=== PATIENT | male | born 2000 | race Hispanic/Latino ===

== ENCOUNTER 2018-04-15 23:10 | Emergency (ER) | payer SELFPAY ==
[2018-04-15] MEDS ORDERED: HYDROCODONE/CHLORPHEN 5 ML/OSYR ONE (23:54)
[2018-04-15] MEDS ORDERED: DEXAMETHASONE 10 MG/ML VIAL ONE (23:54)
[2018-04-15] MEDS ORDERED: IBUPROFEN 400 MG TAB ONE (23:55)
[2018-04-16] MEDS ORDERED: AZITHROMYCIN 250 MG TAB ONE (00:23)
--- NOTE | 2018-04-16 00:59 | EDPHYS ---
Physician Documentation [facility] Name: Gal Chang Age: 18 yrs Sex: Male : 2000 Arrival Date: 04/15/2018 Time: 23:15 Bed 20 Private MD: ED Physician Jericho Estrada HPI: 04/16 00:57 This 18 yrs old Male presents to ER via Ambulatory with complaints of Sore snw Throat, Ear Pain, Headache, Neck Pain, <24hrs Old. 00:57 The patient presents with sore throat. The patient describes throat pain as raw. Onset: snw The symptoms/episode began/occurred suddenly, 2 day(s) ago, and became worse and became persistent. Severity of symptoms: At their worst the symptoms were moderate, severe. Modifying factors: The symptoms are alleviated by nothing, the symptoms are aggravated by swallowing, The patient has had contact with sick daughter, mother. Associated signs and symptoms: Pertinent positives: earache, flu-like symptoms, nausea, Sore throat. The patient has not experienced similar symptoms in the past. The patient has not recently seen a physician. Historical: - Allergies: 04/15 23:29 No Known Allergies; bb - Home Meds: 23:29 None [Active]; bb - PMHx: 23:29 None; bb - PSHx: 23:29 None; bb - Immunization history:: Adult Immunizations up to date. - Social history:: Smoking status: Patient uses tobacco products, smokes one-half pack cigarettes per day, Patient/guardian denies using alcohol, street drugs. - Ebola Screening: : No symptoms or risks identified at this time. ROS: 04/16 00:55 Eyes: Negative for injury, pain, redness, and discharge, Neck: Negative for injury, snw pain, and swelling, Cardiovascular: Negative for chest pain, palpitations, and edema, Abdomen/GI: Negative for abdominal pain, nausea, vomiting, diarrhea, and constipation, Back: Negative for injury and pain, : Negative for injury, bleeding, discharge, and swelling, MS/Extremity: Negative for injury and deformity, Skin: Negative for injury, rash, and discoloration. Constitutional: Positive for body aches, chills, fever, malaise, poor PO intake. ENT: Positive for ear pain, sore throat. Respiratory: Positive for cough. Neuro: Positive for headache. Exam: 00:55 Head/Face: Normocephalic, atraumatic. Eyes: Pupils equal round and reactive to light, snw extra-ocular motions intact. Lids and lashes normal. Conjunctiva and sclera are non-icteric and not injected. Cornea within normal limits. Periorbital areas with no swelling, redness, or edema. 00:55 Chest/axilla: Normal chest wall appearance and motion. Nontender with no deformity. No lesions are appreciated. 00:55 Abdomen/GI: Soft, non-tender, with normal bowel sounds. No distension or tympany. No guarding or rebound. No evidence of tenderness throughout. Back: No spinal tenderness. No costovertebral tenderness. Full range of motion. Skin: Warm, dry with normal turgor. Normal color with no rashes, no lesions, and no evidence of cellulitis. MS/ Extremity: Pulses equal, no cyanosis. Neurovascular intact. Full, normal range of motion. Neuro: Awake and alert, GCS 15, oriented to person, place, time, and situation. Cranial nerves II-XII grossly intact. Motor strength 5/5 in all extremities. Sensory grossly intact. Cerebellar exam normal. Normal gait. 00:55 Constitutional: The patient appears alert, awake, febrile. 00:55 ENT: External ear(s): are unremarkable, Ear canal(s): are normal, TM's: are normal, Nose: is normal, Mouth: is normal, Posterior pharynx: erythema, that is moderate, Voice: is normal. 00:55 Cardiovascular: Rate: tachycardic. Vital Signs: 04/15 23:29 BP 132 / 68; Pulse 106; Resp 16 S; Temp 102.6(O); Pulse Ox 97% on R/A; Weight 58.97 kg bb (R); Height 5 ft. 6 in. (167.64 cm) (R); Pain /; 04/16 00:11 BP 122 / 72; Pulse 95; Resp 18; Pulse Ox 98% on R/A; rv 00:33 BP 121 / 67; Pulse 95; Resp 16; Temp 100.4; Pulse Ox 96% ; rv 01:03 BP 119 / 63; Pulse 92; Resp 17; Pulse Ox 97% on R/A; rv 01:31 BP 112 / 62; Pulse 86; Resp 18; Pulse Ox 97% ; rv 04/15 23:29 Body Mass Index 20.98 (58.97 kg, 167.64 cm) bb MDM: 04/15 23: Patient medically screened. snw 04/16 01:06 Data reviewed: vital signs, nurses notes. Data interpreted: Pulse oximetry: on room air snw is 97 %. Interpretation: normal. Counseling: I had a detailed discussion with the patient and/or guardian regarding: the historical points, exam findings, and any diagnostic results supporting the discharge/admit diagnosis, lab results, the need for outpatient follow up, to return to the emergency department if symptoms worsen or persist or if there are any questions or concerns that arise at home. Special discussion: Based on the history and exam findings, there is no indication for further emergent testing or inpatient evaluation. I discussed with the patient/guardian the need to see the primary care provider for further evaluation of the symptoms. 04/15 23:27 Order name: Strep; Complete Time: 00:13 snw 04/16 00:09 Order name: Throat Culture EDMS Administered Medications: 04/15 23:45 Drug: Tussionex Pennkinetic ER 5 ml Route: PO; rv 04/16 00:24 Follow up: Response: No adverse reaction rv 04/15 23:45 Drug: Motrin 400 mg Route: PO; rv 04/16 00:24 Follow up: Response: No adverse reaction rv 04/15 23:45 Drug: Decadron 10 mg Route: IM; Site: right deltoid; rv 04/16 00:24 Follow up: Response: No adverse reaction rv 00:22 Drug: Zithromax 500 mg Route: PO; rv 01:04 Follow up: Response: No adverse reaction; Medication administered at discharge. rv Disposition: 06:47 Co-signature as Attending Physician, Jericho Estrada MD. rn Disposition: 04/16/18 00:59 Discharged to Home. Impression: Bronchitis, not specified as acute or chronic, Fever presenting with conditions classified elsewhere, Acute pharyngitis. - Condition is Stable. - Discharge Instructions: Acute Bronchitis, Fever, Adult, Pharyngitis. - Prescriptions for Tessalon Perles 100 mg Oral Capsule - take 1 capsule by ORAL route every 8 hours As needed; 15 capsule. Zithromax 500 mg Oral Tablet - take 1 tablet by ORAL route once daily for 5 days; 5 tablet. - Medication Reconciliation Form, Thank You Letter, Antibiotic Education, Prescription Opioid Use, Work release form form. - Follow up: Private Physician; When: 2 - 3 days; Reason: Recheck today's complaints, Continuance of care, Re-evaluation by your physician. Follow up: Emergency Department; When: As needed; Reason: Worsening of condition. Signatures: Dispatcher [employer] EDMS Avelina Desai, FREDDIE-C UNDERWRITING ANALYST-Csnw Tessy Carbajal, DEVIN RN Jericho Holbrook MD MD rn Vicente, Ronaldo, RN RN rv Corrections: (The following items were deleted from the chart) 01:32 00:59 04/16/2018 00:59 Discharged to Home. Impression: Bronchitis, not specified as rv acute or chronic; Fever presenting with conditions classified elsewhere; Acute pharyngitis. Condition is Stable. Forms are Work release form, Medication Reconciliation Form, Thank You Letter, Antibiotic Education, Prescription Opioid Use. Follow up: Private Physician; When: 2 - 3 days; Reason: Recheck today's complaints, Continuance of care, Re-evaluation by your physician. Follow up: Emergency Department; When: As needed; Reason: Worsening of condition. snw
--- NOTE | 2018-04-16 00:59 | ER ---
Nurse's Notes [facility] Name: Gal Chang Age: 18 yrs Sex: Male : 2000 Arrival Date: 04/15/2018 Time: 23:15 Bed 20 Private MD: Diagnosis: Bronchitis, not specified as acute or chronic;Fever presenting with conditions classified elsewhere;Acute pharyngitis Presentation: 04/15 23:24 Presenting complaint: Patient states: he has a sore throat, right ear pain, headache, bb and a possible bite on his left shoulder blade, in general feeling ill pt tried some OTC medications but it is not helping. Transition of care: patient was not received from another setting of care. Onset of symptoms was April 08, 2018. Risk Assessment: Do you want to hurt yourself or someone else? Patient reports no desire to harm self or others. Initial Sepsis Screen: Does the patient meet any 2 criteria? No. Patient's initial sepsis screen is negative. Does the patient have a suspected source of infection? No. Patient's initial sepsis screen is negative. Care prior to arrival: None. 23:24 Method Of Arrival: Ambulatory bb 23:24 Acuity: FLORENTINO 4 bb Historical: - Allergies: 23:29 No Known Allergies; bb - Home Meds: 23:29 None [Active]; bb - PMHx: 23:29 None; bb - PSHx: 23:29 None; bb - Immunization history:: Adult Immunizations up to date. - Social history:: Smoking status: Patient uses tobacco products, smokes one-half pack cigarettes per day, Patient/guardian denies using alcohol, street drugs. - Ebola Screening: : No symptoms or risks identified at this time. Screenin:39 Abuse screen: Denies threats or abuse. Denies injuries from another. Nutritional rv screening: No deficits noted. Tuberculosis screening: No symptoms or risk factors identified. Fall Risk None identified. Assessment: 23:37 General: Appears in no apparent distress. uncomfortable, Behavior is calm, cooperative, rv appropriate for age. Pain: Complains of pain in submental area, thyroid cartilage, right aspect of thyroid, left aspect of thyroid, right submandibular area, left submandibular area, right sternocleidomastoid and left sternocleidomastoid. Neuro: Level of Consciousness is awake, alert, obeys commands, Oriented to person, place, time, situation. Cardiovascular: Heart tones S1 S2 present. Respiratory: Airway is patent Respiratory effort is unlabored, Breath sounds are clear. Respiratory: Breath sounds are clear bilaterally. GI: No signs and/or symptoms were reported involving the gastrointestinal system. GI: No signs and/or symptoms were reported involving the gastrointestinal system. : No signs and/or symptoms were reported regarding the genitourinary system. EENT: Throat is reddened. Derm: Skin is intact. Musculoskeletal: No signs and/or symptoms reported regarding the musculoskeletal system. 04/16 00:11 Reassessment: Patient appears in no apparent distress at this time. Patient and/or rv family updated on plan of care and expected duration. Pain level reassessed. Patient is alert, oriented x 3, equal unlabored respirations, skin warm/dry/pink. patient lying comfortably on bed. Vital Signs: 04/15 23:29 BP 132 / 68; Pulse 106; Resp 16 S; Temp 102.6(O); Pulse Ox 97% on R/A; Weight 58.97 kg bb (R); Height 5 ft. 6 in. (167.64 cm) (R); Pain 8/10; 04/16 00:11 BP 122 / 72; Pulse 95; Resp 18; Pulse Ox 98% on R/A; rv 00:33 BP 121 / 67; Pulse 95; Resp 16; Temp 100.4; Pulse Ox 96% ; rv 01:03 BP 119 / 63; Pulse 92; Resp 17; Pulse Ox 97% on R/A; rv 01:31 BP 112 / 62; Pulse 86; Resp 18; Pulse Ox 97% ; rv 04/15 23:29 Body Mass Index 20.98 (58.97 kg, 167.64 cm) ED Course: 04/15 23:15 Patient arrived in ED. es 23:17 [facility]C [facility] snw 23:17 Jericho Estrada MD is Attending Physician. snw 23:27 Triage completed. bb 23:29 Arm band placed on Patient placed in an exam room, on a stretcher, on pulse oximetry. bb Family accompanied patient. 23:37 Strep Sent. rv 23:39 Patient has correct armband on for positive identification. Bed in low position. Call rv light in reach. Side rails up X 1. Adult w/ patient. Pulse ox on. NIBP on. 04/16 01:02 No provider procedures requiring assistance completed. Patient did not have IV access rv during this emergency room visit. Administered Medications: 04/15 23:45 Drug: Tussionex Pennkinetic ER 5 ml Route: PO; rv 04/16 00:24 Follow up: Response: No adverse reaction rv 04/15 23:45 Drug: Motrin 400 mg Route: PO; rv 04/16 00:24 Follow up: Response: No adverse reaction rv 04/15 23:45 Drug: Decadron 10 mg Route: IM; Site: right deltoid; rv 04/16 00:24 Follow up: Response: No adverse reaction rv 00:22 Drug: Zithromax 500 mg Route: PO; rv 01:04 Follow up: Response: No adverse reaction; Medication administered at discharge. rv Outcome: 00:59 Discharge ordered by MD. mcguire 01:03 Discharged to home ambulatory. rv 01:03 Condition: good 01:03 Discharge instructions given to patient, Instructed on discharge instructions, medication usage. 01:32 Patient left the ED. rv Signatures: Avelina Desai, SUPERVISOR SULFURIC ACID PLANT-C SUPERVISOR SULFURIC ACID PLANT-Csnw Rakel Ruiz Brenda, RN RN Kulwant Siddiqi RN RN rv
== END 2018-04-16 01:32 | disposition home or self-care (01) ==
LOC: ER 23:10
DX: J40 Bronchitis, not specified as acute or chronic (principal); F17.210 Nicotine dependence, cigarettes, uncomplicated
CPT/HCPCS: 87070; 87081; 96372; 99284; J1100

== ENCOUNTER 2019-10-21 20:34 | Emergency (ER) | payer SELFPAY ==
[2019-10-21] MEDS ORDERED: HYDROCODONE/APAP 7.5/325 MG TAB ONE (21:27)
[2019-10-21] MEDS ORDERED: ONDANSETRON 4 MG (ODT) TAB ONE (21:28)
--- NOTE | 2019-10-21 21:48 | ER ---
Nurse's Notes [facility] Name: Gal Chang Age: 19 yrs Sex: Male : 2000 Arrival Date: 10/21/2019 Time: 20:38 Bed 26 Private MD: Diagnosis: Avulsion fracture of unspecified right metacarpal Presentation: 10/21 20:42 Presenting complaint: Patient states: Last night he punched a brick wall with both aj1 hands. Reports pain to both hands. Abrasions noted to knuckles on both hands. Swelling noted to right hand. Patient states he would like to get both hands X-Rayed to make sure it isn't broken. Transition of care: patient was not received from another setting of care. Onset of symptoms was October 21, 2019. Risk Assessment: Do you want to hurt yourself or someone else? Patient reports no desire to harm self or others. Initial Sepsis Screen: Does the patient meet any 2 criteria? No. Patient's initial sepsis screen is negative. Does the patient have a suspected source of infection? No. Patient's initial sepsis screen is negative. Care prior to arrival: None. 20:42 Method Of Arrival: Ambulatory aj1 20:42 Acuity: FLORENTINO 4 aj1 Triage Assessment: 20:44 General: Appears in no apparent distress. comfortable, Behavior is calm, cooperative, aj1 appropriate for age. Pain: Complains of pain in right hand and left hand Pain currently is 10 out of 10 on a pain scale. Neuro: Level of Consciousness is awake, alert, obeys commands. Cardiovascular: Patient's skin is warm and dry. Respiratory: Airway is patent Respiratory effort is even, unlabored, Respiratory pattern is regular, symmetrical. Musculoskeletal: Range of motion: limited in MCP of left little finger, MCP of left ring finger, MCP of left middle finger, MCP of left index finger, MCP of right index finger, MCP of right middle finger, MCP of right ring finger and MCP of right little finger. Injury Description: Patient states that he punched a wall yesterday. Historical: - Allergies: 20:44 No Known Allergies; aj1 - Home Meds: 20:44 None [Active]; aj1 - PMHx: 20:44 None; aj1 - PSHx: 20:44 None; aj1 - Immunization history:: Flu vaccine is not up to date. - Social history:: Smoking status: Patient uses tobacco products, smokes one-half pack cigarettes per day. - Ebola Screening: : Patient denies travel to an Ebola-affected area in the 21 days before illness onset. Screenin:01 Abuse screen: Denies threats or abuse. Denies injuries from another. Nutritional rv screening: No deficits noted. Tuberculosis screening: No symptoms or risk factors identified. Fall Risk None identified. Assessment: 22:00 General: Appears in no apparent distress. Behavior is calm, cooperative. Neuro: Level rv of Consciousness is awake, alert, obeys commands, Oriented to person, place, time, situation. Cardiovascular: Patient's skin is warm and dry. Respiratory: Airway is patent. Derm: Skin is intact. Vital Signs: 20:44 BP 135 / 69; Pulse 109; Resp 20; Temp 98.4; Pulse Ox 99% on R/A; Weight 65.77 kg (R); aj1 Height 5 ft. 6 in. (167.64 cm) (R); Pain 10/10; 22:17 BP 131 / 73; Pulse 96; Resp 16; Pulse Ox 99% on R/A; rv 20:44 Body Mass Index 23.40 (65.77 kg, 167.64 cm) aj1 ED Course: 20:38 Patient arrived in ED. es 20:43 Triage completed. aj1 20:44 Arm band placed on Patient placed in waiting room, Patient notified of wait time. aj1 20:48 Ino Armstrong FNP-C [facility] la1 20:48 Geovani Araujo MD is Attending Physician. la1 21:11 Hand Left 3 View XRAY In Process Unspecified. EDMS 21:11 Hand Right 3 View XRAY In Process Unspecified. EDMS 21:59 Kulwant Wheatley, DEVIN is Primary Nurse. rv 22:01 Patient has correct armband on for positive identification. Pulse ox on. NIBP on. rv 22:01 No provider procedures requiring assistance completed. Patient did not have IV access rv during this emergency room visit. Administered Medications: 21:45 Drug: Taloga (7.5 mg-325 mg) 1 tabs {Note: rass 0.} Route: PO; rv 22:16 Follow up: Response: No adverse reaction; Marked relief of symptoms; Pain is decreased; rv RASS: Alert and Calm (0) 21:45 Drug: Zofran 4 mg Route: PO; rv 22:16 Follow up: Response: Nausea is decreased rv Outcome: 21:47 Discharge ordered by MD. garcia 22:03 Discharged to home ambulatory. rv 22:03 Condition: good 22:03 Discharge instructions given to patient, Instructed on discharge instructions, follow up and referral plans. Demonstrated understanding of instructions, follow-up care. 22:58 Patient left the ED. rv Signatures: Dispatcher [employer] Mony Duarte, RN RN aj1 Rakel Ruiz Lee, METAL DEALER-C METAL DEALER-Cla1 Kulwant Wheatley RN RN rv
--- NOTE | 2019-10-21 21:48 | EDPHYS ---
Physician Documentation [facility] Name: Gal Chang Age: 19 yrs Sex: Male : 2000 Arrival Date: 10/21/2019 Time: 20:38 Bed 26 Private MD: ED Physician Geovani Araujo HPI: 10/21 21:19 This 19 yrs old Male presents to ER via Ambulatory with complaints of Hand la1 Injury. 21:19 The patient or guardian reports pain, swelling, tenderness. The complaints affect the la1 left hand diffusely, right hand diffusely. Context: The problem was sustained at home, resulted from using own fist to strike, a wall. Onset: The symptoms/episode began/occurred last night. Modifying factors: The symptoms are alleviated by nothing, the symptoms are aggravated by movement. Associated signs and symptoms: The patient has no apparent associated signs or symptoms. Severity of symptoms: At their worst the symptoms were mild, in the emergency department the symptoms are unchanged. The patient has not recently seen a physician. Pt reports that he punched the wall last night with both hands, swelling worse to the right hand. Historical: - Allergies: 20:44 No Known Allergies; aj1 - Home Meds: 20:44 None [Active]; aj1 - PMHx: 20:44 None; aj1 - PSHx: 20:44 None; aj1 - Immunization history:: Flu vaccine is not up to date. - Social history:: Smoking status: Patient uses tobacco products, smokes one-half pack cigarettes per day. - Ebola Screening: : Patient denies travel to an Ebola-affected area in the 21 days before illness onset. ROS: 21:21 Constitutional: Negative for fever, chills, and weight loss, Eyes: Negative for injury, la1 pain, redness, and discharge, ENT: Negative for injury, pain, and discharge, Neck: Negative for injury, pain, and swelling, Cardiovascular: Negative for chest pain, palpitations, and edema, Respiratory: Negative for shortness of breath, cough, wheezing, and pleuritic chest pain, Abdomen/GI: Negative for abdominal pain, nausea, vomiting, diarrhea, and constipation, Back: Negative for injury and pain. 21:21 MS/extremity: Positive for pain, swelling, tenderness, of the left hand. Exam: 21:22 Constitutional: This is a well developed, well nourished patient who is awake, alert, la1 and in no acute distress. Head/Face: Normocephalic, atraumatic. Eyes: Pupils equal round and reactive to light, extra-ocular motions intact. . Periorbital areas with no swelling, redness, or edema. ENT: Mucous membranes moist. Neck: No Meningismus. Chest/axilla: Normal chest wall appearance and motion. Nontender with no deformity. No lesions are appreciated. Cardiovascular: Regular rate and rhythm with a normal S1 and S2. No gallops, murmurs, or rubs. Normal PMI, no JVD. No pulse deficits. Back: No spinal tenderness. No costovertebral tenderness. Full range of motion. Skin: Warm, dry with normal turgor. abrasions to NICOLLE hands/knuckles, swelling to right hand MS/ Extremity: Pulses equal, no cyanosis. Neurovascular intact. Full, normal range of motion. Neuro: Awake and alert, GCS 15, oriented to person, place, time, and situation. Normal gait. Vital Signs: 20:44 BP 135 / 69; Pulse 109; Resp 20; Temp 98.4; Pulse Ox 99% on R/A; Weight 65.77 kg (R); aj1 Height 5 ft. 6 in. (167.64 cm) (R); Pain 10/10; 22:17 BP 131 / 73; Pulse 96; Resp 16; Pulse Ox 99% on R/A; rv 20:44 Body Mass Index 23.40 (65.77 kg, 167.64 cm) aj1 MDM: 21:19 Patient medically screened. la1 21:44 Data reviewed: vital signs, nurses notes, radiologic studies, and as a result, I will la1 discharge patient. Data interpreted: Pulse oximetry: on room air is 99 %. Interpretation: normal. Test interpretation: by ED physician or midlevel provider: plain radiologic studies. Counseling: I had a detailed discussion with the patient and/or guardian regarding: the historical points, exam findings, and any diagnostic results supporting the discharge/admit diagnosis, radiology results, the need for outpatient follow up, a hand specialist, a orthopedic surgeon. ED course: What appears to be a small avulsion fracture present in the lateral view of the right hand, will place in splint and have FU with ortho/hand. 10/21 20:46 Order name: Hand Left 3 View XRAY aj1 10/21 20:46 Order name: Hand Right 3 View XRAY aj1 10/21 21:44 Order name: Ulnar Gutter splint: right hand; Complete Time: 22:16 la1 Administered Medications: 21:45 Drug: Conway (7.5 mg-325 mg) 1 tabs {Note: rass 0.} Route: PO; rv 22:16 Follow up: Response: No adverse reaction; Marked relief of symptoms; Pain is decreased; rv RASS: Alert and Calm (0) 21:45 Drug: Zofran 4 mg Route: PO; rv 22:16 Follow up: Response: Nausea is decreased rv Disposition: 10/22 00:42 Co-signature as Attending Physician, Geovani Araujo MD. pkl Disposition: 10/21/19 21:47 Discharged to Home. Impression: Avulsion fracture of unspecified right metacarpal . - Condition is Stable. - Discharge Instructions: Avulsion Fracture of the Hand, Hand Contusion, Hand Pain. - Work release form, Medication Reconciliation Form, Thank You Letter form. - Follow up: Private Physician; When: 2 - 3 days; Reason: Recheck today's complaints, Re-evaluation by your physician. - Problem is new. - Symptoms are unchanged. Signatures: Dispatcher [employer] Mony Duarte RN RN aj1 Geovani Araujo MD MD pkl Ino Armstrong, JOB SERVICE CONSULTANT-C JOB SERVICE CONSULTANT-Cla1 Kulwant Wheatley RN RN rv Corrections: (The following items were deleted from the chart) 10/21 22:58 21:47 10/21/2019 21:47 Discharged to Home. Impression: Avulsion fracture of unspecified rv right metacarpal . Condition is Stable. Forms are Medication Reconciliation Form, Thank You Letter, Antibiotic Education, Prescription Opioid Use. Follow up: Private Physician; When: 2 - 3 days; Reason: Recheck today's complaints, Re-evaluation by your physician. Problem is new. Symptoms are unchanged. la1
[2019-10-21 23:04] VITALS: TEMP 98.4; O2SAT 99
[2019-10-21 23:05] VITALS: BP 131/73
--- NOTE | 2019-10-22 08:26 | RAD REPORT ---
EXAM DESCRIPTION: RAD - Hand Right 3 View - 10/21/2019 9:20 pm CLINICAL HISTORY: Right hand pain following trauma COMPARISON: None. FINDINGS: Distal aspect of the fifth metacarpal is intact. This is the most common site of fracture for the mechanism of injury described. On the lateral view there is a small 3 millimeter bone density along the dorsal margin of the hand near the base of the metacarpals. This is suspected to arise fro m the base of the fifth metacarpal. No other evidence for fracture. No acute joint finding. Dorsal soft tissues are edematous. No foreign body. IMPRESSION: Suspected small bone avulsion from the dorsal base fifth metacarpal.
--- NOTE | 2019-10-22 08:27 | RAD REPORT ---
EXAM DESCRIPTION: RAD - Hand Left 3 View - 10/21/2019 9:19 pm CLINICAL HISTORY: Left hand pain following trauma COMPARISON: None. FINDINGS: No fracture, dislocation or periosteal reaction noted. No foreign body seen. Dorsal soft t issues are edematous. IMPRESSION: Soft tissue swelling without fracture identified.
== END 2019-10-21 22:58 | disposition home or self-care (01) ==
LOC: ER 20:34
PROC: 2W3CX1Z Immobilization of Right Lower Arm using Splint (ICD-10-PCS; principal; 2019-10-21)
DX: S62.309A Unspecified fracture of unspecified metacarpal bone, initial encounter for closed fracture (principal); W22.8XXA Striking against or struck by other objects, initial encounter; Y93.89 Activity, other specified; Y92.009 Unspecified place in unspecified non-institutional (private) residence as the place of occurrence of the external cause; F17.210 Nicotine dependence, cigarettes, uncomplicated
CPT/HCPCS: 99283

== ENCOUNTER 2021-09-01 15:09 | Observation (INO) | payer SELFPAY ==
[2021-09-01] MEDS ORDERED: NA CHLORIDE 0.9% 1,000 ML ONE ×2 (15:24→16:46)
[2021-09-01 15:45] LABS: Absolute Lymphocytes (CBC) 1.6 K/uL (0.7-4.9); Basophils % 0.2 % (0-1.3); Hematocrit 40.8 % (39.6-49.0); Lymphocytes % 10.6 % (15.3-44.8); MPV 7.9 fL (7.6-11.3); RBC Red Blood Cell Count 4.66 M/uL (4.33-5.43)
[2021-09-01 16:01] LABS: ALT/SGPT 51 U/L (12-78); AST/SGOT 27 U/L (15-37); Albumin 4.4 g/dL (3.4-5.0); Alkaline Phosphatase 112 U/L (45-117); BUN Blood Urea Nitrogen 22 mg/dL (7-18); Bicarbonate 25 mmol/L (21-32); Bilirubin Direct 0.1 mg/dL (0-0.2); Bilirubin Total 0.5 mg/dL (0.2-1.0); Glucose Level 100 mg/dL (74-106); Lipase 69 U/L (73-393); Potassium 3.8 mmol/L (3.5-5.1); Protein, Total 7.8 g/dL (6.4-8.2); Sodium Level 141 mmol/L (136-145)
[2021-09-01 16:28] LABS: Blood Morphology Comment NOT SEEN (NOT SEEN); Platelet Estimate ADEQ; White Blood Cell Scan OK (OK)
--- NOTE | 2021-09-01 16:29 | RAD REPORT ---
EXAM DESCRIPTION: CTAbdomen Pelvis W Contrast - 09/01/2021 4:22 pm CLINICAL HISTORY: ABD PAIN COMPARISON: No comparisons TECHNIQUE: CT of the abdomen and pelvis was performed. All CT scans are performed using dose optimization technique as appropriate and may include automated exposure control or mA/KV adjustment according to patient size. FINDINGS: Lower chest: No acute abnormality. Liver: No acute abnormality or suspicious lesions. Biliary: No biliary ductal dilatation. Stomach: No significant focal abnormality. Duodenum: No significant focal abnormality. Pancreas: No significant abnormality. Spleen: No significant abnormality. Adrenal: No suspicious lesions. Kidney/ureter: No hydronephrosis. No renal calculi. Retroperitoneum: No retroperitoneal adenopathy. Vascular: No aneurysm. Bowel: Dilated appendix with appendicolith. No bowel obstruction. Peritoneum: No ascites or free air. Bladder: Grossly unremarkable. Reproductive: No adnexal masses. Bones: No acute fracture. Other: n/a IMPRESSION: Findings concerning for mild or early acute nonperforated appendicitis.
--- NOTE | 2021-09-01 16:40 | EDPHYS ---
Physician Documentation [facility] Name: Gla Chang Age: 21 yrs Sex: Male : 2000 Arrival Date: 09/01/2021 Time: 15:13 Bed 17 Private MD: ED Physician Melvin Joyner HPI: 09/01 15:25 This 21 yrs old Male presents to ER via EMS with complaints of abdominal pain. kb 15:25 The patient presents with abdominal pain that is diffuse. Onset: The symptoms/episode kb began/occurred today, at 12:00. The symptoms do not radiate. Associated signs and symptoms: Pertinent positives: nausea, Pertinent negatives: diarrhea, fever, vomiting. The symptoms are described as constant. Modifying factors: The symptoms are alleviated by nothing, the symptoms are aggravated by pressure. Severity of pain: At its worst the pain was moderate in the emergency department the pain is unchanged. The patient has not experienced similar symptoms in the past. The patient has not recently seen a physician. Pt reports sudden onset of abd pain that started at 1200 and has been getting worse. Historical: - Allergies: 15:19 No Known Allergies; vg1 - Home Meds: 15:19 None [Active]; vg1 - PMHx: 15:19 None; vg1 - PSHx: 15:19 None; vg1 - Immunization history:: Client reports receiving the 2nd dose of the Covid vaccine. - Social history:: Smoking status: Reported history of juuling and/or vaping. ROS: 15:25 Constitutional: Negative for fever, chills, and weight loss. kb 15:25 Abdomen/GI: Positive for abdominal pain, nausea, Negative for vomiting, diarrhea, constipation. 15:25 All other systems are negative. Exam: 15:25 Constitutional: This is a well developed, well nourished patient who is awake, alert, kb and in no acute distress. Head/Face: Normocephalic, atraumatic. ENT: Moist Mucous membranes Cardiovascular: Regular rate and rhythm with a normal S1 and S2. No gallops, murmurs, or rubs. No pulse deficits. Respiratory: Respirations even and unlabored. No increased work of breathing, no retractions or nasal flaring. Skin: Warm, dry with normal turgor. Normal color. MS/ Extremity: Pulses equal, no cyanosis. Neurovascular intact. Full, normal range of motion. Neuro: Awake and alert, GCS 15, oriented to person, place, time, and situation. Moves all extremities. Normal gait. Psych: Awake, alert, with orientation to person, place and time. Behavior, mood, and affect are within normal limits. 15:25 Abdomen/GI: Inspection: abdomen appears normal, Bowel sounds: normal, in all quadrants, Palpation: soft, in all quadrants, mild abdominal tenderness, in the right upper quadrant, left upper quadrant and left lower quadrant, moderate abdominal tenderness, in the right lower quadrant. Vital Signs: 15:15 BP 123 / 85; Pulse 66; Resp 14; Temp 97.9(O); Pulse Ox 96% ; Weight 68.04 kg; Height 5 vg1 ft. 6 in. (167.64 cm); Pain 8/10; 16:00 BP 147 / 99; Pulse 87; Resp 15; Pulse Ox 98% ; vg1 16:45 BP 132 / 78; Pulse 80; Resp 16; Pulse Ox 100% ; vg1 15:15 Body Mass Index 24.21 (68.04 kg, 167.64 cm) vg1 MDM: 15:13 Patient medically screened. kb 15:25 Data reviewed: vital signs, nurses notes. Data interpreted: Pulse oximetry: on room air kb is 96 %. Interpretation: normal. 16:39 Counseling: I had a detailed discussion with the patient and/or guardian regarding: the kb historical points, exam findings, and any diagnostic results supporting the discharge/admit diagnosis, lab results, radiology results, the need for further work-up and treatment in the hospital. 16:39 Physician consultation: Nathan Zhao MD was contacted at 16:39, regarding admission, kb to the medical/surgical unit. patient's condition, and will see patient shortly. 09/01 15:14 Order name: Basic Metabolic Panel; Complete Time: 16:05 kb 09/01 15:14 Order name: CBC with Diff; Complete Time: 16:37 kb 09/01 15:14 Order name: Hepatic Function; Complete Time: 16:05 kb 09/01 15:14 Order name: Lipase; Complete Time: 16:05 kb 09/01 16:28 Order name: CBC Smear Scan; Complete Time: 16:37 EDMS 09/01 16:43 Order name: COVID-19 SARS RT PCR (Document "Date of Onset" if Symptomatic) 09/01 15:14 Order name: IV Saline Lock; Complete Time: 15:23 kb 09/01 15:14 Order name: Labs collected and sent; Complete Time: 15:40 kb 09/01 15:14 Order name: CT Abd/Pelvis - IV Contrast Only; Complete Time: 16:37 kb Administered Medications: 15:40 Drug: NS 0.9% 1000 ml Route: IV; Rate: 1000 ml; Site: left antecubital; vg1 17:16 Follow up: IV Status: Completed infusion; IV Intake: 1000ml vg1 17:07 Drug: NS 0.9% 1000 ml Route: IV; Rate: 125 ml/hr; Site: left antecubital; jt3 17:16 Follow up: IV Status: Infusion continued upon admission vg1 17:07 Drug: Rocephin (cefTRIAXone) 1 grams Route: IV; Rate: calculated rate; Site: left jt3 antecubital; 17:16 Follow up: IV Status: Completed infusion vg1 17:07 Drug: Flagyl (metroNIDAZOLE) 500 mg Volume: 100 ml; Route: IVPB; Rate: 200 ml/hr; jt3 Infused Over: 30 mins; Site: left antecubital; 17:16 Follow up: IV Status: Infusion continued upon admission vg1 Disposition Summary: 09/01/21 16:40 Hospitalization Ordered Hospitalization Status: Observation kb Provider: Nathan Zhao Location: Telemetry/MedSurg (observation) kb Condition: Stable kb Problem: new kb Symptoms: are unchanged kb Bed/Room Type: Standard Room Assignment: Diagnosis - Unspecified acute appendicitis kb Forms: - Medication Reconciliation Form kb - SBAR form kb Addendum: 09/03/2021 03:48 Co-signature as Attending Physician, Melvin Joyner MD I agree with the assessment and k dr plan of care. Signatures: Dispatcher [employer] Annette Daly, BEDSPREAD SEAMER-C BEDSPREAD SEAMER-Melvin Tierney MD MD kdr Garcia, Victoria RN RN vg1 Van Cummings RN RN jt3
--- NOTE | 2021-09-01 16:40 | ER ---
Nurse's Notes [facility] Name: Gal Chang Age: 21 yrs Sex: Male : 2000 Arrival Date: 09/01/2021 Time: 15:13 Bed 17 Private MD: Diagnosis: Unspecified acute appendicitis Presentation: 09/01 15:15 Chief complaint: Patient states: pt states pain is now 8/10 after receiving fentanyl; vg1 pain was 10/10 EMS states: Sudden onset of ABD pain today around noon. Pt stated NVD. Pt was given 4 mg of Zofran IVP and 50 of Fentanyl IVP. Coronavirus screen: Vaccine status: Patient reports receiving the 2nd dose of the covid vaccine. Client denies travel out of the [place] in the last 14 days. Client presents with at least one sign or symptom that may indicate coronavirus-19. Standard/surgical mask placed on the client. Ebola Screen: Patient negative for fever greater than or equal to 101.5 degrees Fahrenheit, and additional compatible Ebola Virus Disease symptoms. Initial Sepsis Screen: Does the patient meet any 2 criteria? No. Patient's initial sepsis screen is negative. Does the patient have a suspected source of infection? No. Patient's initial sepsis screen is negative. Risk Assessment: Do you want to hurt yourself or someone else? Patient reports no desire to harm self or others. Onset of symptoms was September 01, 2021. 15:15 Method Of Arrival: EMS: [facility] vg1 15:15 Acuity: FLORENTINO 3 vg1 Triage Assessment: 15:19 General: Appears in no apparent distress. uncomfortable, Behavior is cooperative. Pain: vg1 Complains of pain in abdomen Pain currently is 8 out of 10 on a pain scale. Pain began 3 hours ago. Noted to be crying, grimacing, moaning, Also complains of nausea. EENT: No signs and/or symptoms were reported regarding the EENT system. Neuro: Level of Consciousness is awake, alert, obeys commands, Oriented to person, place, time, situation. Cardiovascular: Patient's skin is warm and dry. Respiratory: Airway is patent Respiratory effort is even, unlabored. GI: Abdomen is flat, Abdomen is tender to palpation X 4 quads. Guarding noted Reports diarrhea, nausea, vomiting. : No signs and/or symptoms were reported regarding the genitourinary system. Derm: Skin is intact, Skin is pink, warm \T\ dry. Musculoskeletal: Circulation, motion, and sensation intact. Historical: - Allergies: 15:19 No Known Allergies; vg1 - Home Meds: 15:19 None [Active]; vg1 - PMHx: 15:19 None; vg1 - PSHx: 15:19 None; vg1 - Immunization history:: Client reports receiving the 2nd dose of the Covid vaccine. - Social history:: Smoking status: Reported history of juuling and/or vaping. Screenin:22 Abuse screen: Denies threats or abuse. Nutritional screening: No deficits noted. vg1 Tuberculosis screening: No symptoms or risk factors identified. Fall Risk No fall in past 12 months (0 pts). No secondary diagnosis (0 pts). IV access (20 points). Ambulatory Aid- None/Bed Rest/Nurse Assist (0 pts). Gait- Normal/Bed Rest/Wheelchair (0 pts) Mental Status- Oriented to own ability (0 pts). Total Prasad Fall Scale indicates No Risk (0-24 pts). Assessment: 15:23 Reassessment: SEE TRIAGE. vg1 16:29 Reassessment: Patient appears in no apparent distress at this time. No changes from vg1 previously documented assessment. Patient and/or family updated on plan of care and expected duration. Pain level reassessed. Patient is alert, oriented x 3, equal unlabored respirations, skin warm/dry/pink. 17:18 Reassessment: Patient appears in no apparent distress at this time. No changes from vg1 previously documented assessment. Patient and/or family updated on plan of care and expected duration. Pain level reassessed. Patient is alert, oriented x 3, equal unlabored respirations, skin warm/dry/pink. Pt taken to OR with Edwina BELTRAN. Vital Signs: 15:15 BP 123 / 85; Pulse 66; Resp 14; Temp 97.9(O); Pulse Ox 96% ; Weight 68.04 kg; Height 5 vg1 ft. 6 in. (167.64 cm); Pain 8/10; 16:00 BP 147 / 99; Pulse 87; Resp 15; Pulse Ox 98% ; vg1 16:45 BP 132 / 78; Pulse 80; Resp 16; Pulse Ox 100% ; vg1 15:15 Body Mass Index 24.21 (68.04 kg, 167.64 cm) vg1 ED Course: 15:13 Patient arrived in ED. kb 15:13 Annette Devlin FNP-C is [facility]. kb 15:13 Melvin Joyner MD is Attending Physician. kb 15:15 Modesta Cortes, RN is Primary Nurse. vg1 15:19 Triage completed. vg1 15:22 Patient has correct armband on for positive identification. Bed in low position. Call vg1 light in reach. Side rails up X2. 15:22 Arm band placed on. vg1 15:22 No provider procedures requiring assistance completed. Maintain EMS IV. Dressing vg1 intact. Good blood return noted. Site clean \T\ dry. Gauge \T\ site: 18 R AC. 15:40 Initial lab(s) drawn, by me, sent to lab. Inserted saline lock: 20 gauge in left vg1 antecubital area, using aseptic technique. Blood collected. 16:21 CT Abd/Pelvis - IV Contrast Only In Process Unspecified. EDMS 16:40 Nathan Zhao MD is Hospitalizing Provider. kb 17:20 Patient admitted, IV remains in place. vg1 Administered Medications: 15:40 Drug: NS 0.9% 1000 ml Route: IV; Rate: 1000 ml; Site: left antecubital; vg1 17:16 Follow up: IV Status: Completed infusion; IV Intake: 1000ml vg1 17:07 Drug: NS 0.9% 1000 ml Route: IV; Rate: 125 ml/hr; Site: left antecubital; jt3 17:16 Follow up: IV Status: Infusion continued upon admission vg1 17:07 Drug: Rocephin (cefTRIAXone) 1 grams Route: IV; Rate: calculated rate; Site: left jt3 antecubital; 17:16 Follow up: IV Status: Completed infusion vg1 17:07 Drug: Flagyl (metroNIDAZOLE) 500 mg Volume: 100 ml; Route: IVPB; Rate: 200 ml/hr; jt3 Infused Over: 30 mins; Site: left antecubital; 17:16 Follow up: IV Status: Infusion continued upon admission vg1 Intake: 17:16 IV: 1000ml; Total: 1000ml. vg1 Outcome: 16:40 Decision to Hospitalize by Provider. kb 17:19 Admitted to OR accompanied by nurse, via stretcher, with chart. vg1 17:19 Condition: unchanged 17:19 Instructed on the need for admit. 17:20 Patient left the ED. vg1 Signatures: Dispatcher [employer] Annette Daly, Modesta Mejia RN RN vg1 Van Cummings RN RN jt3 Corrections: (The following items were deleted from the chart) 17:18 16:30 BP 147 / 99; Pulse 87bpm; Resp 15bpm; Pulse Ox 98%; vg1 vg1
[2021-09-01] MEDS ORDERED: CEFTRIAXONE 1000 MG/VIAL ONE (16:45)
[2021-09-01] MEDS ORDERED: WATER FOR INJ,STERILE 10 ML ONE (16:45)
[2021-09-01] MEDS ORDERED: NA CHLORIDE 0.9% 250 ML ONE (16:45)
[2021-09-01] MEDS ORDERED: METRONIDAZOLE 500mg IVPB 500 MG/100 ML BAG IV ONE (16:46)
[2021-09-01] MEDS ORDERED: NA CHLORIDE 0.9% 1,000 ML IV SCH (17:09)
[2021-09-01] MEDS ORDERED: SUCCINYLCHOLINE 20 MG/ML (10 ML) IV ONE (18:11)
[2021-09-01] MEDS ORDERED: MIDAZOLAM HCL 2 MG/2 ML INJ ONE (18:13)
[2021-09-01] MEDS ORDERED: ROCURONIUM 50 MG/5 ML VIAL IV ONE (18:13)
[2021-09-01] MEDS ORDERED: FENTANYL CITR 100 MCG/2 ML ONE ×2 (18:13→19:18)
[2021-09-01] MEDS ORDERED: propofoL 200 MG/20 ML VIAL IV ONE (18:13)
--- NOTE | 2021-09-01 18:16 | P.BOP ---
Preoperative diagnosis: acute appendicitis Postoperative diagnosis: same Primary procedure: Laparoscopic appendectomy Estimated blood loss: <10cc Specimen: albert Findings: as above Anesthesia: General Complications: None Transferred to: Recovery Room Condition: Good
[2021-09-01] MEDS ORDERED: NEOSTIGMINE 1 MG/ML -5 ML ONE (18:40)
[2021-09-01] MEDS ORDERED: GLYCOPYRROLATE 0.2 MG/ML SYR ONE (18:40)
[2021-09-01] MEDS ORDERED: ONDANSETRON 4 MG/2 ML VIAL IV PRN (18:48)
[2021-09-01] MEDS ORDERED: SODIUM CHLORIDE 0.9% 10ML INJ IV PRN (18:48)
[2021-09-01] MEDS ORDERED: KETOROLAC 30 MG/ML INJ ONE (19:16)
[2021-09-01 19:22] VITALS: O2SAT 98
--- NOTE | 2021-09-01 19:57 | OP ---
Date of Procedure: 09/01/2021 Surgeon: Nathan Zhao MD Preoperative Diagnosis: Acute appendicitis. Postoperative Diagnosis: Acute appendicitis. Procedure: Laparoscopic appendectomy. Estimated Blood Loss: Less than 10 cc. Anesthesia: General plus local. Complications: None. Indication: This is a case of a 21-year-old patient who comes to us with above diagnosis. We fully explained the benefits, alternatives, and risks of laparoscopic possible open appendectomy, which inc lude, but not limited to infection, bleeding, damage to adjacent structures, anesthesia complication, RI, even . He also understands this may not relieve symptoms. He might need more than one fatoumata gical intervention. He understood, signed a consent. The OR was called stat. Procedure In Detail: The patient was brought to operating room, placed in supine position. Anesthes ia was done without complication. Abdomen was prepped and draped in a usual sterile fashion. Time-o ut was called. After that we proceeded to make an incision in the infraumbilical region with sharp k nife. The incision was carried down to fascia. We just opened under direct vision. Peritoneum was encountered, opened under direct vision. Vicryl #1 was placed inside the fascia. Lisa trocar was carefully introduced. No bleeding was obtained. I placed 2 more trocars, 5 mm each one of them in s uprapubic and left lower quadrant using same technique, which consisted of local anesthetic, sharp in cision of the skin, introduction of the trocars under direct vision. This allowed me to put a graspe r in the area in the mesoappendix. We noticed to have inflamed appendix, but the base of the appendi x seems to be intact, so we proceeded to carefully create a window in the base of the appendix, trans ected that with Endo-GI 45 and then after that, the vascular stapler for the mesoappendix. No bowel leak. No bleeding. At that moment, I proceeded to remove the appendix after putting that in EndoCa tc under direct visualization. We visualized the area once again. Further hemostasis was obtained with the help of hemoclips. No bowel leak. No bleeding. At that moment, I proceeded to remove the trocars under direct vision. Deflated pneumoperitoneum, closed the fascia with 1 Vicryl. Irrigated subcutaneous tissue, closed that with 3-0 chromic and skin with isidro. Sponge count and instrument counts correct. The patient tolerated the procedure well. The patient is on his way to recovery in stable condition. SUSY/MODL Voice ID: [id number] Report ID: [id number]
--- NOTE | 2021-09-01 20:20 | HP ---
Date of Admission: 09/01/2021 Diagnosis: Acute appendicitis. History Of Present Illness: This is a case of a 21-year-old patient who comes to us with periumbilic al and right lower quadrant tenderness associated with nausea, vomiting, it started about 12 this aft ernoon, getting worse, comes to the ER, was diagnosed with acute appendicitis, and a surgical consult was immediately obtained. He denies any trauma. He denies any dysuria, hematochezia, melena. Loyd es any recent traveling out of the country. Denies any family member sick at home. Review of Systems: See H and P. Ten points otherwise unremarkable. Allergies: NONE. Medications: None. Past Medical History: None. Past Surgical History: None. Social History: He does not smoke. He does not drink alcohol. Physical Examination: General: The patient is awake and alert. HEENT: Pupils are equal and reactive. Anicteric. Neck: Supple. Chest: Clear. Heart: S1, S2. Abdomen: Right lower quadrant tenderness with psoas sign positive, guarding and rebound. Extremitie s: Good capillary refill. Neuro: Cranial nerves 2 through 12 grossly within normal limits. Laboratory Data: WBC count of 15.4 with hemoglobin of 13.7 and platelets of 316. Chloride is 109, p otassium is 3.8, BUN is 22. CAT scan of the abdomen and pelvis interpreted by Dr. Price as findings co ervin for acute appendicitis. Assessment: This is a case of a 21-year-old patient with right lower quadrant tenderness, guarding, rebound, psoas sign positive, Rovsing sign positive, clinically acute appendicitis and radiologically shows acute appendicitis. The patient fully explained the benefits, alternatives, and risks of lapa roscopic possible open appendectomy which include, but not limited to infection, bleeding, damage to adjacent structures, anesthesia complication, negative appendix, DE and even . He also understa nds this may not relieve symptoms. He might need more than one surgical intervention. He understood , signed a consent. The OR was immediately called and booked case in OR. SUSY/DAVI Voice ID: [id number]
[2021-09-01] MEDS: HYDROMORPHONE HCL 1 MG/ML INJ IV PRN (22:54)
[2021-09-01 23:42] VITALS: BMI 24.2
[2021-09-02] MEDS: CEFOXITIN 1 GM in NA CHLORIDE 0.9% 100 ML IVPB SCH ×3 (00:11→11:02)
[2021-09-02] MEDS: HYDROMORPHONE HCL 1 MG/ML INJ IV PRN (01:57)
[2021-09-02 05:05] LABS: Absolute Lymphocytes (CBC) 2.9 K/uL (0.7-4.9); Basophils % 0.3 % (0-1.3); Hematocrit 38.6 % (39.6-49.0); Lymphocytes % 24.2 % (15.3-44.8); MPV 8.4 fL (7.6-11.3)
[2021-09-02 05:17] LABS: BUN Blood Urea Nitrogen 17 mg/dL (7-18); Bicarbonate 24 mmol/L (21-32); Glucose Level 141 mg/dL (74-106); Potassium 3.6 mmol/L (3.5-5.1); Sodium Level 140 mmol/L (136-145)
[2021-09-02] MEDS: HYDROCODONE/APAP 5/325 MG TAB PO PRN ×2 (05:39→11:03)
[2021-09-02 08:11] VITALS: TEMP 97.3
[2021-09-02] MEDS ORDERED: PANTOPRAZOLE 40 MG INJ IVP SCH (09:00)
--- NOTE | 2021-09-02 11:34 | P.DS ---
Admission Date: 09/01/21 Discharge Date: 09/02/21 Disposition: ROUTINE DISCHARGE Discharge Condition: GOOD Vital Signs/Physical Exam: Temp Pulse Resp BP Pulse Ox 97.3 F 51 20 101/56 L 99 09/02/21 08:00 09/02/21 09:39 09/02/21 08:00 09/02/21 09:39 09/02/21 08:00 General: Alert, In no apparent distress, Oriented x3, Cooperative HEENT: Atraumatic, PERRLA Neck: Supple Respiratory: Normal air movement Cardiovascular: No edema, Normal pulses Gastrointestinal: Soft and benign Musculoskeletal: No erythema, No tenderness, No warmth Integumentary: No rashes, No breakdown Neurological: Normal speech Laboratory Data at Discharge: WBC 12.00 K/uL (4.3-10.9) H D 09/02/21 04:33 Hgb 12.8 g/dL (13.6-17.9) L 09/02/21 04:33 Hct 38.6 % (39.6-49.0) L 09/02/21 04:33 Plt Count 269 K/uL (152-406) 09/02/21 04:33 Sodium 140 mmol/L (136-145) 09/02/21 04:33 Potassium 3.6 mmol/L (3.5-5.1) 09/02/21 04:33 BUN 17 mg/dL (7-18) 09/02/21 04:33 Creatinine 0.87 mg/dL (0.55-1.3) 09/02/21 04:33 Glucose 141 mg/dL (74-106) H 09/02/21 04:33 Total Bilirubin 0.5 mg/dL (0.2-1.0) 09/01/21 15:38 AST 27 U/L (15-37) 09/01/21 15:38 ALT 51 U/L (12-78) 09/01/21 15:38 Alkaline Phosphatase 112 U/L (45-117) 09/01/21 15:38 Lipase 69 U/L (73-393) L 09/01/21 15:38 Home Medications: Amox/Clavulanate [Augmentin 875-125 Tab] 1 each PO BID #10 tab 09/02/21 Codeine/APAP [Tylenol W/Codeine #3 tab] 1 tab PO Q4HP PRN #30 tab 09/02/21 New Medications: Amox/Clavulanate [Augmentin 875-125 Tab] 1 each PO BID #10 tab Codeine/APAP [Tylenol W/Codeine #3 tab] 1 tab PO Q4HP PRN #30 tab PRN Reason: Pain Physician Discharge Instructions: Keep area dry for 24h then may remove outer dressing and shower. cover staple with triple abx ointment and band aid Diet: Regular Activity: No lifting more than 10 lbs Followup: NONE,NONE [Primary Care Provider] -
[2021-09-02 12:29] VITALS: BP 118/57
== END 2021-09-02 13:35 | disposition home or self-care (01) ==
LOC: ER 15:09 → ERHOLD 16:55 → 2ND 17:45
PROVIDERS: ADMIT Surgery; ATTEND Surgery
PROC: 0DTJ4ZZ Resection of Appendix, Percutaneous Endoscopic Approach (ICD-10-PCS; principal; 2021-09-01 17:30)
DX: K35.80 Unspecified acute appendicitis (principal); Z20.822 Contact with and (suspected) exposure to COVID-19
CPT/HCPCS: 36415; 74177; 80048; 80076; 83690; 85025; 88304; 94010; 96361; 96374; 96375; 99285; C9113; G0378; J0330; J0694; J1170; J2250; J2704; J2710; J3010; J7030; J7050; Q9967; U0003

== ENCOUNTER 2023-05-05 22:32 | Emergency (ER) | payer SELFPAY ==
[2023-05-05] MEDS ORDERED: MORPHINE 4 MG/ML SYR ONE (23:04)
[2023-05-05] MEDS ORDERED: NA CHLORIDE 0.9% 1,000 ML ONE (23:04)
[2023-05-05] MEDS ORDERED: ONDANSETRON 4 MG/2 ML VIAL ONE (23:04)
[2023-05-05 23:14] LABS: Absolute Lymphocytes (CBC) 1.1 K/uL (0.7-4.9); Hematocrit 42.7 % (39.6-49.0); Lymphocytes % 9.9 % (15.3-44.8); MCV 88.4 fL (80-100); MPV 7.8 fL (7.6-11.3); RBC Red Blood Cell Count 4.83 M/uL (4.33-5.43)
[2023-05-05 23:23] LABS: Albumin 3.9 g/dL (3.4-5.0); Bilirubin Total 0.8 mg/dL (0.2-1.0); Potassium 3.5 mEq/L (3.5-5.1); Protein, Total 7.8 g/dL (6.4-8.2)
[2023-05-06 00:04] LABS: Specific Gravity > 1.030 (1.005-1.030); Urine Bacteria None Seen /HPF (<20); Urine Bilirubin NEGATIVE (Negative); Urine Blood Negative (Negative); Urine Clarity Clear (Clear); Urine Color Yellow (Yellow); Urine Glucose NEGATIVE (Negative); Urine Mucus 3+ /HPF (None Seen); Urine Protein TRACE (Negative); Urine RBC None Seen /HPF (None Seen); Urine Urobilinogen Normal (Normal); Urine pH 5.5 (5.0-7.0)
--- NOTE | 2023-05-06 01:31 | EDPHYS ---
Physician Documentation [facility] Name: Gal Chang Age: 23 yrs Sex: Male : 2000 Arrival Date: 05/05/2023 Time: 22:32 Bed 13 Private MD: ED Physician Marilee Guaman HPI: 05/05 22:48 This 23 yrs old Male presents to ER via Ambulatory with complaints of sp3 Abdominal Pain. 22:48 23-year-old male with no significant past medical history and status post appendectomy sp3 presents to the ED with 2-day history of abdominal cramping, nausea, and several bouts of diarrhea nonbloody nonmucous. Patient states he has possible bad food exposure due to "a restaurant in [place]" that he went to. He denies any sick contacts, significant travel history outside the local area, headache, neck pain, chest pain, shortness of breath, emesis, back pain, rash, fever, URI symptoms, syncope, near syncope, neuro symptoms, or any other signs or symptoms on ROS at this time.. Historical: - Allergies: 22:41 No Known Allergies; as6 - PMHx: 22:41 None; as6 - PSHx: 22:41 Appendectomy; as6 - Immunization history:: Client reports receiving the 2nd dose of the Covid vaccine, pfizer. - Social history:: Smoking status: Reported history of juuling and/or vaping. ROS: 22:48 Constitutional: Negative for fever, chills, and weight loss, Eyes: Negative for injury, sp3 pain, redness, and discharge, ENT: Negative for injury, pain, and discharge, Neck: Negative for injury, pain, and swelling, Cardiovascular: Negative for chest pain, palpitations, and edema, Respiratory: Negative for shortness of breath, cough, wheezing, and pleuritic chest pain, Back: Negative for injury and pain, MS/Extremity: Negative for injury and deformity, Skin: Negative for injury, rash, and discoloration, Neuro: Negative for headache, weakness, numbness, tingling, and seizure, Psych: Negative for depression, anxiety, suicide ideation, homicidal ideation, and hallucinations, Allergy/Immunology: Negative for hives, rash, and allergies, Endocrine: Negative for neck swelling, polydipsia, polyuria, polyphagia, and marked weight changes, Hematologic/Lymphatic: Negative for swollen nodes, abnormal bleeding, and unusual bruising. 22:48 All other systems are negative. Exam: 22:49 Constitutional: This is a well developed, well nourished patient who is awake, alert, sp3 and in no acute distress. Head/Face: Normocephalic, atraumatic. Eyes: Pupils equal round and reactive to light, extra-ocular motions intact. Lids and lashes normal. Conjunctiva and sclera are non-icteric and not injected. Cornea within normal limits. Periorbital areas with no swelling, redness, or edema. ENT: Nares patent. No nasal discharge, no septal abnormalities noted. External auditory canals are clear. Oropharynx with no redness, swelling, or masses, exudates, or evidence of obstruction, uvula midline. Mucous membranes moist. Neck: Trachea midline, no thyromegaly or masses palpated, and no cervical lymphadenopathy. Supple, full range of motion without nuchal rigidity, or vertebral point tenderness. No Meningismus. Chest/axilla: Normal chest wall appearance and motion. Nontender with no deformity. No lesions are appreciated. Cardiovascular: Regular rate and rhythm with a normal S1 and S2. No gallops, murmurs, or rubs. Normal PMI, no JVD. No pulse deficits. Respiratory: Lungs have equal breath sounds bilaterally, clear to auscultation and percussion. No rales, rhonchi or wheezes noted. No increased work of breathing, no retractions or nasal flaring. Back: No spinal tenderness. No costovertebral tenderness. Full range of motion. Skin: Warm, dry with normal turgor. Normal color with no rashes, no lesions, and no evidence of cellulitis. MS/ Extremity: Pulses equal, no cyanosis. Neurovascular intact. Full, normal range of motion. Neuro: Awake and alert, GCS 15, oriented to person, place, time, and situation. Cranial nerves II-XII grossly intact. Motor strength 5/5 in all extremities. Sensory grossly intact. Cerebellar exam normal. Normal gait. Psych: Awake, alert, with orientation to person, place and time. Behavior, mood, and affect are within normal limits. 22:49 Abdomen/GI: Abdomen soft without peritoneal signs rebound or guarding. Mild tenderness noted on the right mid abdomen. Bowel sounds are normal.. Vital Signs: 22:37 BP 129 / 88; Pulse 88; Resp 18 S; Temp 99.5(O); Pulse Ox 100% on R/A; Weight 70.31 kg as6 (R); Height 5 ft. 6 in. (R); Pain 6/10; 23:02 BP 125 / 69; Pulse 85; Resp 18; Pulse Ox 97% on R/A; mb9 23:15 BP 119 / 65; Pulse 83; Resp 15 S; Pulse Ox 96% on R/A; ha1 05/06 00:20 BP 111 / 64; Pulse 79; Resp 18 S; Pulse Ox 96% on R/A; ha1 01:20 BP 119 / 65; Pulse 70; Resp 18 S; Pulse Ox 98% on R/A; ha1 05/05 22:37 Body Mass Index 25.02 (70.31 kg, 167.64 cm) as6 05/05 22:37 Pain Scale: Adult as6 MDM: 05/05 22:46 Patient medically screened. sp3 22:49 Data reviewed: vital signs, nurses notes, old medical records, lab test result(s), sp3 radiologic studies. ED course: 23-year-old male with right-sided abdominal pain without surgical abdomen. Differential diagnosis includes biliary colic, cholecystitis, intestinal cramping, intestinal obstruction, ileus, adhesions, kidney stone, UTI, MSK pain, among others. Will obtain CT scan of the abdomen and pelvis, laboratory values, urine analysis, and administer morphine IV, Zofran IV, and normal saline for symptomatic treatment. Likely discharge patient home if work-up is negative and further treatment as indicated.. 05/06 01:30 ED course: Patient feels much better after IV fluids and pain medication. CT scan sp3 demonstrates no significant findings and laboratory values are also within normal limits. Since patient feels better, we will safely discharge him home with general precautions, soft diet and p.o. ODT ondansetron as needed. Follow-up with PCP as needed.. 05/05 22:57 Order name: Comprehensive Metabolic Panel; Complete Time: 00:21 EDMS 05/05 22:57 Order name: Lipase; Complete Time: 00:21 EDMS 05/05 22:58 Order name: CBC with Automated Diff; Complete Time: 00:21 EDMS 05/05 23:10 Order name: Urinalysis w/ reflexes; Complete Time: 00:21 EDNH 05/05 22:47 Order name: CT Abd/Pelvis - IV Contrast Only sp3 05/05 23:01 Order name: Abdomen EDNH 05/05 22:47 Order name: IV Saline Lock; Complete Time: 23:01 sp3 05/05 22:47 Order name: Labs collected and sent; Complete Time: 23:01 sp3 Administered Medications: 05/05 22:52 Drug: NS 0.9% IV 1000 ml Route: IV; Rate: 1 bolus; Site: right antecubital; mb9 05/06 00:20 Follow up: Response: No adverse reaction; IV Status: Completed infusion; IV Intake: ha1 1000ml 05/05 22:52 Drug: Ondansetron IVP 4 mg Route: IVP; Site: right antecubital; mb9 23:06 Follow up: Response: No adverse reaction mb9 23:25 Follow up: Response: No adverse reaction; Nausea is decreased ha1 22:56 Drug: morphine IVP or IV 4 mg Route: IVP; Infused Over: 4 mins; Site: right antecubital;mb9 23:06 Follow up: Response: No adverse reaction mb9 23:25 Follow up: Response: No adverse reaction; Pain is decreased; RASS: Alert and Calm (0) ha1 Disposition Summary: 05/06/23 01:31 Discharge Ordered Location: Home sp3 Condition: Stable sp3 Diagnosis - Abdominal pain, nausea, gastritis sp3 Followup: sp3 - With: Private Physician - When: Upon discharge from the Emergency Department - Reason: Continuance of care Discharge Instructions: - Discharge Summary Sheet sp3 - Abdominal Pain, Adult sp3 Forms: - Medication Reconciliation Form sp3 - Thank You Letter sp3 - Antibiotic Education sp3 - Prescription Opioid Use sp3 - Patient Portal Instructions sp3 - Work release form ha1 Prescriptions: - ondansetron 8 mg Oral tablet,disintegrating - take 1 tablet by ORAL route every 12 hours; 20 tablet; Refills: 0, Product sp3 Selection Permitted Signatures: Dispatcher [employer] Marilee Harding MD MD sp3 Pradeep Li RN RN as6 Sola Garrett RN RN mb9 Tania Roca RN ha1 Corrections: (The following items were deleted from the chart) 23:01 22:58 CT-ABD ordered. EDMS EDMS
--- NOTE | 2023-05-06 01:31 | ER ---
Nurse's Notes [facility] Name: Gal Chang Age: 23 yrs Sex: Male : 2000 Arrival Date: 05/05/2023 Time: 22:32 Bed 13 Private MD: Diagnosis: Abdominal pain, nausea, gastritis Presentation: 05/05 22:36 Coronavirus screen: At this time, the client does not indicate any symptoms associated as6 with coronavirus-19. Ebola Screen: No symptoms or risks identified at this time. Risk Assessment: Do you want to hurt yourself or someone else? Patient reports no desire to harm self or others. 22:36 Method Of Arrival: Ambulatory as6 22:36 Acuity: FLOR[place] 3 as6 22:37 Chief complaint: Patient states: "I have been having bad stomach pain for about 2 days. as6 I feel real weak and like I have a fever" denies vomiting. Initial Sepsis Screen: Does the patient meet any 2 criteria? No. Patient's initial sepsis screen is negative. Does the patient have a suspected source of infection? No. Patient's initial sepsis screen is negative. Onset of symptoms was May 04, 2023. Triage Assessment: 22:41 General: Appears ill, Behavior is calm, cooperative. Pain: Complains of pain in as6 abdomen. GI: Reports lower abdominal pain, upper abdominal pain, diarrhea. Historical: - Allergies: 22:41 No Known Allergies; as6 - PMHx: 22:41 None; as6 - PSHx: 22:41 Appendectomy; as6 - Immunization history:: Client reports receiving the 2nd dose of the Covid vaccine, pfizer. - Social history:: Smoking status: Reported history of juuling and/or vaping. Screenin:42 [facility] ED Fall Risk Assessment (Adult) History of falling in the last 3 months, ha1 including since admission No falls in past 3 months (0 pts) Confusion or Disorientation No (0 pts) Intoxicated or Sedated No (0 pts) Impaired Gait No (0 pts) Mobility Assist Device Used No (0 pt) Altered Elimination No (0 pt) Score/Fall Risk Level 0 - 2 = Low Risk Oriented to surroundings, Maintained a safe environment, Educated pt \\T\\ family on fall prevention, incl call for assistance when getting out of bed. Abuse screen: Denies threats or abuse. Nutritional screening: No deficits noted. Tuberculosis screening: No symptoms or risk factors identified. Assessment: 22:42 General: Appears uncomfortable, Behavior is calm, cooperative. Pain: Complains of pain ha1 in abdomen Pain does not radiate. Pain currently is 8 out of 10 on a pain scale. Quality of pain is described as crampy, throbbing, Pain began 2-3 days ago. Is intermittent. Neuro: Level of Consciousness is awake, alert, obeys commands, Oriented to person, place, time, situation. Cardiovascular: Patient's skin is warm and dry. Respiratory: Airway is patent Respiratory effort is even, unlabored, Respiratory pattern is regular, symmetrical. GI: Abdomen is flat, non-distended, Bowel sounds present X 4 quads. Abd is soft and non tender. : No signs and/or symptoms were reported regarding the genitourinary system. Derm: Skin is healthy with good turgor, Skin is moist, Skin is normal. Musculoskeletal: Circulation, motion, and sensation intact. Range of motion: intact in all extremities. 23:25 Reassessment: Patient and/or family updated on plan of care and expected duration. Pain ha1 level reassessed. Patient is alert, oriented x 3, equal unlabored respirations, skin warm/dry/pink. pain /10. 05/06 00:20 Reassessment: Patient and/or family updated on plan of care and expected duration. Pain ha1 level reassessed. Patient is alert, oriented x 3, equal unlabored respirations, skin warm/dry/pink. 01:20 Reassessment: Patient and/or family updated on plan of care and expected duration. Pain ha1 level reassessed. Patient is alert, oriented x 3, equal unlabored respirations, skin warm/dry/pink. Patient states symptoms have improved. Vital Signs: 05/05 22:37 BP 129 / 88; Pulse 88; Resp 18 S; Temp 99.5(O); Pulse Ox 100% on R/A; Weight 70.31 kg as6 (R); Height 5 ft. 6 in. (R); Pain 6/10; 23:02 BP 125 / 69; Pulse 85; Resp 18; Pulse Ox 97% on R/A; mb9 23:15 BP 119 / 65; Pulse 83; Resp 15 S; Pulse Ox 96% on R/A; ha1 05/06 00:20 BP 111 / 64; Pulse 79; Resp 18 S; Pulse Ox 96% on R/A; ha1 01:20 BP 119 / 65; Pulse 70; Resp 18 S; Pulse Ox 98% on R/A; ha1 05/05 22:37 Body Mass Index 25.02 (70.31 kg, 167.64 cm) as6 05/05 22:37 Pain Scale: Adult as6 ED Course: 05/05 22:35 Patient arrived in ED. ag3 22:37 Triage completed. as6 22:37 Marilee Guaamn MD is Attending Physician. sp3 22:37 Arm band placed on. as6 22:50 Inserted saline lock: 20 gauge in right antecubital area, using aseptic technique. mb9 Blood collected. 23:01 Comprehensive Metabolic Panel Sent. mb9 23:01 Lipase Sent. mb9 23:01 CBC with Automated Diff Sent. mb9 23:02 Placed in gown. Bed in low position. Call light in reach. Side rails up X 1. Client mb9 placed on continuous cardiac and pulse oximetry monitoring. NIBP monitoring applied. 23:06 Tania Roca, RN is Primary Nurse. ha1 23:42 Abdomen In Process Unspecified. EDMS 05/06 01:39 Provided Education on: medication administration. . ha1 01:39 Assist provider with bone marrow aspiration. IV discontinued, intact, bleeding ha1 controlled, No redness/swelling at site. Pressure dressing applied. Administered Medications: 05/05 22:52 Drug: NS 0.9% IV 1000 ml Route: IV; Rate: 1 bolus; Site: right antecubital; mb9 05/06 00:20 Follow up: Response: No adverse reaction; IV Status: Completed infusion; IV Intake: ha1 1000ml 05/05 22:52 Drug: Ondansetron IVP 4 mg Route: IVP; Site: right antecubital; mb9 23:06 Follow up: Response: No adverse reaction mb9 23:25 Follow up: Response: No adverse reaction; Nausea is decreased ha1 22:56 Drug: morphine IVP or IV 4 mg Route: IVP; Infused Over: 4 mins; Site: right antecubital;mb9 23:06 Follow up: Response: No adverse reaction mb9 23:25 Follow up: Response: No adverse reaction; Pain is decreased; RASS: Alert and Calm (0) ha1 Medication: 23:02 VIS not applicable for this client. mb9 Intake: 05/06 00:20 IV: 1000ml; Total: 1000ml. ha1 Outcome: 01:31 Discharge ordered by . sp3 01:39 Discharged to home ambulatory. ha1 01:39 Condition: stable 01:39 Discharge instructions given to patient, Instructed on discharge instructions, follow up and referral plans. medication usage, Demonstrated understanding of instructions, follow-up care, medications, Prescriptions given X 1. 01:44 Patient left the ED. ha1 Signatures: Dispatcher [employer] EDMS Eleni Salazar 3 Marilee Guaman MD MD sp3 Pradeep Li RN RN rod6 Tania Roca RN RN ha1 Sola Garrett RN RN mb9
[2023-05-06 01:53] VITALS: TEMP 99.5
[2023-05-06 01:59] VITALS: BP 119/65; O2SAT 98
--- NOTE | 2023-05-06 11:08 | RAD REPORT ---
EXAM DESCRIPTION: CT Abdomen and Pelvis With Intravenous Contrast CLINICAL HISTORY: The patient is 23 years old and is Male; abdominal pain, diarrhea TECHNIQUE: Axial computed tomography images of the abdomen and pelvis with intravenous contrast. S agittal and coronal reformatted images were created and reviewed. This CT exam was performed using one or more of the following dose reduction techniques: automated exposure control, adjustment of t he mA and/or kV according to patient size, and/or use of iterative reconstruction technique. COMPARISON: CT of the abdomen and pelvis September 01, 2021 FINDINGS: LUNG BASES: Unremarkable. No mass. No consolidation. ABDOMEN: LIVER: Unremarkable. No mass. GALLBLADDER AND BILE DUCTS: The gallbladder is distended. No calcified gallstones or ductal dilat ation is seen. PANCREAS: No ductal dilation. No mass. SPLEEN: Unremarkable. ADRENALS: Unremarkable. No mass. KIDNEYS AND URETERS: Unremarkable. The kidneys enhance symmetrically. No obstructing renal or ure teral calculus is seen. No hydronephrosis or hydroureter. No perinephric fluid or stranding. STOMACH AND BOWEL: The stomach is distended with food contents. The small bowel is relatively nor mal in caliber. Stool is present throughout colon. There is no mucosal thickening or evidence of aldo l obstruction. A few small bowel loops are fluid-filled but normal in caliber. PELVIS: APPENDIX: The appendix is surgically absent. BLADDER: The bladder is incompletely distended. REPRODUCTIVE: Unremarkable as visualized. ABDOMEN and PELVIS: INTRAPERITONEAL SPACE: Unremarkable. No free air. No significant fluid collection. BONES/JOINTS: No acute fracture. SOFT TISSUES: The soft tissues are normal. VASCULATURE: Unremarkable. No abdominal aortic aneurysm. LYMPH NODES: Unremarkable. No enlarged lymph nodes. IMPRESSION: No acute findings on this contrasted CT of the abdomen and pelvis to explain the patient 's symptoms. Electronically signed by: Mary Kay Robbins MD 05/06/2023 12:09 AM CDT Due to temporary technical issues with the PACS/Fluency reporting system, reports are being signed by the in house radiologist without review as a courtesy to ensure prompt reporting. The interpreting r adiologist is fully responsible for the content of the report.
== END 2023-05-06 01:44 | disposition home or self-care (01) ==
LOC: ER 22:32
DX: K29.70 Gastritis, unspecified, without bleeding (principal); R11.0 Nausea; F17.290 Nicotine dependence, other tobacco product, uncomplicated
CPT/HCPCS: 36415; 74177; 80053; 81001; 83690; 85025; 96361; 96374; 96375; 99285; J2405; J7030; Q9967

== ENCOUNTER 2024-04-23 18:20 | Emergency (ER) | payer SELFPAY ==
--- NOTE | 2024-04-23 19:00 | EDPHYS ---
Physician Documentation [facility] Name: Gal Chang Age: 24 yrs Sex: Male : 2000 Arrival Date: 04/23/2024 Time: 18:20 Bed Treatment Private MD: Brice Underwood HPI: 04/23 18:45 This 24 yrs old Male presents to ER via Ambulatory with complaints of Ear Pain.cp 18:45 The patient presents with hearing loss, partial, pain, that is acute. The complaints cp affect the left ear. Onset: The symptoms/episode began/occurred 3 day(s) ago. Associated signs and symptoms: Pertinent negatives: cough, fever, sinus trouble, sore throat. Historical: - Allergies: 18:30 No Known Allergies; ko1 - Home Meds: 18:30 None [Active]; ko1 - PMHx: 18:30 None; ko1 - PSHx: 18:30 Appendectomy; ko1 - Immunization history:: Adult Immunizations up to date. - Infectious Disease History:: Denies. - Social history:: Smoking status: Patient denies any tobacco usage or history of. ROS: 18:50 ENT: Positive for ear pain, hearing loss, Negative for drainage from ear(s), sore cp throat, difficulty swallowing, difficulty handling secretions, 18:50 Constitutional: Negative for fever, cp 18:50 Respiratory: Negative for cough, shortness of breath, wheezing, 18:50 Abdomen/GI: Negative for vomiting, 18:50 All other systems are negative, Exam: 18:55 Constitutional: The patient appears in no acute distress, alert, awake, non-toxic, well cp developed, well nourished, 18:55 Head/Face: Normocephalic, atraumatic. cp 18:55 Eyes: Periorbital structures: appear normal, Conjunctiva: normal, no exudate, no injection, Sclera: no appreciated abnormality, Lids and lashes: appear normal, bilaterally, 18:55 ENT: External ear(s): pain with movement, that is mild, of the left ear canal, Ear canal(s): erythema, of the left canal, swelling, of the left canal, mild, TM's: erythema, on the right, Nose: is normal, Mouth: Lips: moist, Oral mucosa: moist, Posterior pharynx: Airway: no evidence of obstruction, patent, 18:55 Neck: ROM/movement: is normal, is supple, without pain, no range of motions limitations, 18:55 Chest/axilla: Inspection: normal, 18:55 Cardiovascular: Rate: normal, 18:55 Respiratory: the patient does not display signs of respiratory distress, Respirations: normal, no use of accessory muscles, no retractions, Breath sounds: are clear throughout, no decreased breath sounds, 18:55 Skin: no rash present. Vital Signs: 18:29 BP 144 / 94; Pulse 74; Resp 18; Temp 98.6; Pulse Ox 100% ; ko1 18:48 BP 132 / 76; Pulse 84; Resp 18; Pulse Ox 100% on R/A; ld1 MDM: 18:32 Patient medically screened. cp 19:00 Data reviewed: vital signs, nurses notes, and as a result, I will discharge patient. cp 19:00 Differential diagnosis: otitis media, otitis externa, ruptured TM, cerumen impaction, cp sinusitis. Counseling: I had a detailed discussion with the patient and/or guardian regarding the historical points, exam findings, and any diagnostic results supporting the discharge/admit diagnosis, to return to the emergency department if symptoms worsen or persist or if there are any questions or concerns that arise at home. Administered Medications: No medications were administered Disposition Summary: 04/23/24 19:00 Discharge Ordered Notes: Location: Home cp Problem: new cp Symptoms: have improved cp Condition: Stable cp Diagnosis - Otitis media, unspecified, left ear cp - Otitis media in diseases classified elsewhere, right ear cp Followup: cp - With: María Verduzco MD - When: 1 week - Reason: Recheck today's complaints Discharge Instructions: - Discharge Summary Sheet cp - Otitis Media, Adult cp - Otitis Externa cp Forms: - Medication Reconciliation Form cp - Antibiotic Education cp - Prescription Opioid Use cp - Patient Portal Instructions cp - Leadership Thank You Letter cp Prescriptions: - Augmentin 875-125 mg Oral Tablet - take 1 tablet ORAL route every 12 hours for 10 days; 20 tablet; Refills: 0, cp Product Selection Permitted - Ciprodex 0.3-0.1 % Otic drops, suspension - instill 4 drops OTIC route every 12 hours for 7 days , for ears ONLY, instill cp drops in left ear; 1 unit; Refills: 0, Product Selection Permitted Addendum: 04/25/2024 07:47 Co-signature as Attending Physician, Brice Ellis MD I agree with the assessment and c price plan of care. Signatures: Brice Ellis MD MD cha Page, Corey, PA PA cp Oliver, Kathy, RN RN ko1
--- NOTE | 2024-04-23 19:00 | ER ---
Nurse's Notes [facility] Name: Gal Chang Age: 24 yrs Sex: Male : 2000 Arrival Date: 04/23/2024 Time: 18:20 Bed Treatment Private MD: Diagnosis: Otitis media, unspecified, left ear;Otitis media in diseases classified elsewhere, right ear Presentation: 04/23 18:29 Chief complaint: Patient states: left ear pain, it was getting better, let the ko1 clean it out, now is having a hard time hearing. Coronavirus screen: At this time, the client does not indicate any symptoms associated with coronavirus-19. Ebola Screen: No symptoms or risks identified at this time. Initial Sepsis Screen: Does the patient meet any 2 criteria? No. Patient's initial sepsis screen is negative. Does the patient have a suspected source of infection? No. Patient's initial sepsis screen is negative. Risk Assessment: Do you want to hurt yourself or someone else? Patient reports no desire to harm self or others. Onset of symptoms is unknown. 18:29 Method Of Arrival: Ambulatory ko1 18:29 Acuity: FLORENTINO 4 ko1 Triage Assessment: 18:30 General: Appears in no apparent distress. Behavior is calm, cooperative, appropriate ko1 for age. Pain: Complains of pain in left ear. EENT: Reports decreased hearing in left ear pain in left ear. Historical: - Allergies: 18:30 No Known Allergies; ko1 - Home Meds: 18:30 None [Active]; ko1 - PMHx: 18:30 None; ko1 - PSHx: 18:30 Appendectomy; ko1 - Immunization history:: Adult Immunizations up to date. - Infectious Disease History:: Denies. - Social history:: Smoking status: Patient denies any tobacco usage or history of. Screenin:48 [facility] ED Fall Risk Assessment (Adult) History of falling in the last 3 months, ld1 including since admission No falls in past 3 months (0 pts) Confusion or Disorientation No (0 pts) Intoxicated or Sedated No (0 pts) Impaired Gait No (0 pts) Mobility Assist Device Used No (0 pt) Altered Elimination No (0 pt) Score/Fall Risk Level 0 - 2 = Low Risk Oriented to surroundings, Maintained a safe environment, Educated pt \T\ family on fall prevention, incl call for assistance when getting out of bed, Assessed \T\ reinforced patient's understanding of fall precautions, Provided non-skid footwear, Hourly rounding (assess needs \T\ fall precautionary measures) done, Used ambulatory aids as needed (educated on \T\ assisted with), Used gait belt as appropriate. Abuse screen: Denies threats or abuse. Denies injuries from another. Nutritional screening: No deficits noted. Tuberculosis screening: No symptoms or risk factors identified. Assessment: 18:48 General: Appears in no apparent distress. comfortable, Behavior is calm, cooperative, ld1 appropriate for age. Pain: Complains of pain in left ear Pain does not radiate. Pain currently is 7 out of 10 on a pain scale. Quality of pain is described as throbbing. Neuro: Level of Consciousness is awake, alert, obeys commands, Oriented to person, place, time, situation. Cardiovascular: Capillary refill < 3 seconds Patient's skin is warm and dry. Respiratory: Airway is patent Respiratory effort is even, unlabored. GI: Abdomen is flat, non-distended. Vital Signs: 18:29 BP 144 / 94; Pulse 74; Resp 18; Temp 98.6; Pulse Ox 100% ; ko1 18:48 BP 132 / 76; Pulse 84; Resp 18; Pulse Ox 100% on R/A; ld1 ED Course: 18:22 Patient arrived in ED. ts1 18:23 Brice Grewal PA is PHCP. cp 18:23 Brice Ellis MD is Attending Physician. cp 18:30 Triage completed. ko1 18:30 Arm band placed on right wrist. Patient placed in an exam room, on pulse oximetry. ko1 18:48 Patient has correct armband on for positive identification. Placed in gown. Bed in low ld1 position. Call light in reach. Side rails up X2. traffic monitor specialist on. Pulse ox on. NIBP on. Door closed. Noise minimized. Warm blanket given. 18:48 No provider procedures requiring assistance completed. ld1 18:59 María Verduzco MD is Referral Physician. cp 19:14 Patient did not have IV access during this emergency room visit. cm10 19:15 Provided Education on: Follow-up instructions. cm10 Administered Medications: No medications were administered Medication: 19:14 VIS not applicable for this client. cm10 Outcome: 19:00 Discharge ordered by . cp 19:14 Discharged to home ambulatory, cm10 19:14 Condition: good 19:14 Discharge instructions given to patient, Instructed on discharge instructions, follow up and referral plans. medication usage, Demonstrated understanding of instructions, follow-up care, medications, Prescriptions given X 2, 19:15 Patient left the ED. cm10 Signatures: Brice Grewal PA PA cp Sims, Lauren RN RN ld1 Symone Chu RN RN ko1 Portia Mendenhall PAS PAS ts1 Lelia Zhao RN RN cm10
[2024-04-23 19:28] VITALS: BP 132/76; TEMP 98.6; O2SAT 100
== END 2024-04-23 19:15 | disposition home or self-care (01) ==
LOC: ER 18:20
DX: H66.92 Otitis media, unspecified, left ear (principal); H66.91 Otitis media, unspecified, right ear
CPT/HCPCS: 99284

== ENCOUNTER 2024-05-31 12:07 | Emergency (ER) | payer SELFPAY ==
--- NOTE | 2024-05-31 12:47 | RAD REPORT ---
EXAM DESCRIPTION: RAD - Lumbar Spine 3 Views - 05/31/2024 12:34 pm CLINICAL HISTORY: PAIN COMPARISON: None FINDINGS/IMPRESSION: No acute fracture. No malalignment. No significant focal degenerative changes. Surgical clips in the right lower quadrant.
[2024-05-31] MEDS ORDERED: dexAMETHasone 10 MG/ML VIAL ONE (13:06)
[2024-05-31] MEDS ORDERED: KETOROLAC 30 MG/ML INJ ONE (13:07)
[2024-05-31] MEDS ORDERED: CYCLOBENZAPRINE 10 MG TAB ONE (13:07)
--- NOTE | 2024-05-31 13:36 | EDPHYS ---
Physician Documentation [facility] Name: Gal Chang Age: 24 yrs Sex: Male : 2000 Arrival Date: 05/31/2024 Time: 12:07 Bed 9 Private MD: ED Physician Jericho Estrada HPI: 05/31 12:18 This 24 yrs old Male presents to ER via Unassigned with complaints of Back sb4 Pain. 12:18 The patient presents with pain that is acute. The symptoms are located in the low back. sb4 Onset: The symptoms/episode began/occurred 2 week(s) ago. The pain does not radiate. Associated signs and symptoms: The patient has no apparent associated signs or symptoms. The problem was sustained from unknown cause. Modifying factors: The patient symptoms are alleviated by nothing, the patient symptoms are aggravated by movement. The patient has not experienced similar symptoms in the past. Historical: - Allergies: 12:17 No Known Allergies; nj1 - PMHx: 12:17 None; nj1 - PSHx: 12:17 Appendectomy; nj1 - Immunization history:: Client reports receiving the 1st dose of the Covid vaccine. - Infectious Disease History:: Denies. - Social history:: Smoking status: Reported history of juuling and/or vaping. ROS: 12:18 Constitutional: Negative for fever, chills, and weight loss, sb4 12:18 Back: Positive for injury or acute deformity, pain at rest, of the lumbar area, 12:18 All other systems are negative, Exam: 12:18 Constitutional: This is a well developed, well nourished patient who is awake, alert, sb4 and in no acute distress. Head/Face: Normocephalic, atraumatic. Eyes: Extra-ocular motions intact. Periorbital areas with no swelling, redness, or edema. ENT: Mucous membranes moist. Cardiovascular: Regular rate and rhythm with a normal S1 and S2. Skin: Warm, dry with normal turgor. Normal color with no rashes, no lesions, and no evidence of cellulitis. MS/ Extremity: Pulses equal, no cyanosis. Neurovascular intact. Full, normal range of motion. 12:18 Back: pain, that is moderate, of the lumbar area, ROM is painful, normal spinal alignment noted, CVA tenderness, is absent, muscle spasm, is not present, 12:18 Neuro: Motor: moves all fours, 12:20 Neuro: Sensation: is normal, Gait: is steady, sb4 Vital Signs: 12:18 BP 127 / 76; Pulse 68; Resp 18; Temp 98.9; Pulse Ox 97% on R/A; Weight 74.84 kg; Height nj1 5 ft. 6 in. ; Pain 7/10; 13:17 BP 111 / 80; Pulse 57; Resp 18; Temp 98; Pulse Ox 100% on R/A; kj2 13:44 BP 119 / 79; Pulse 69; Resp 20; Temp 98; Pulse Ox 98% on R/A; kj2 12:18 Body Mass Index 26.63 (74.84 kg, 167.64 cm) nj1 12:18 Pain Scale: Adult nj1 MDM: 12:15 Patient medically screened. sb4 13:17 Data reviewed: vital signs, nurses notes, radiologic studies, and as a result, I will sb4 discharge patient. Counseling: I had a detailed discussion with the patient and/or guardian regarding the historical points, exam findings, and any diagnostic results supporting the discharge/admit diagnosis, radiology results, to return to the emergency department if symptoms worsen or persist or if there are any questions or concerns that arise at home. 05/31 12:18 Order name: Lumbar Spine (3 Views) XRAY; Complete Time: 12:50 sb4 Administered Medications: 13:15 Drug: Ketorolac IM 30 mg IM once Route: IM; Site: left deltoid; kj2 13:39 Follow up: Response: No adverse reaction; Pain is decreased kj2 13:15 Drug: Dexamethasone IM 10 mg IM once Route: IM; Site: right deltoid; kj2 13:39 Follow up: Response: No adverse reaction; Pain is decreased kj2 13:15 Drug: Cyclobenzaprine PO 10 mg PO once Route: PO; kj2 13:38 Follow up: Response: No adverse reaction; Pain is decreased kj2 Disposition: 15:00 Co-signature as Attending Physician, Jericho Estrada MD I reviewed the patient's care rn provided by the Advanced Practice Provider and agree with the diagnosis and treatment plan. Disposition Summary: 05/31/24 13:35 Discharge Ordered Notes: Location: Home sb4 Problem: an ongoing problem sb4 Symptoms: have improved sb4 Condition: Stable sb4 Diagnosis - Strain of muscle, fascia and tendon of lower back sb4 Followup: sb4 - With: Private Physician - When: As needed - Reason: Recheck today's complaints, Re-evaluation by your physician Discharge Instructions: - Discharge Summary Sheet sb4 - Low Back Sprain or Strain Rehab sb4 Forms: - Work release form sb4 - Patient Portal Instructions sb4 - Leadership Thank You Letter sb4 Prescriptions: - Diclofenac Sodium 75 mg Oral Tablet Sustained Release - take 1 tablet ORAL route 2 times per day; 30 tablet; Refills: 0, Product sb4 Selection Permitted - Cyclobenzaprine 5 mg Oral Tablet - take 1 tablet ORAL route 3 times per day As needed; 15 tablet; Refills: 0, sb4 Product Selection Permitted Signatures: Dispatcher [employer] Jericho Grimm MD MD rn Brown, Sophia, PA-C PA-C sb4 Luz Treviño RN RN nj1 Tiffanie Araujo RN RN kj2
--- NOTE | 2024-05-31 13:36 | ER ---
Nurse's Notes [facility] Name: Gal Chang Age: 24 yrs Sex: Male : 2000 Arrival Date: 05/31/2024 Time: 12:07 Bed 9 Private MD: Diagnosis: Strain of muscle, fascia and tendon of lower back Presentation: 05/31 12:18 Chief complaint: Patient states: Back pain for 2 weeks, getting worse. Tried tylenol nj1 and ibuprofen with slight relief, has not taken any today. Coronavirus screen: Vaccine status: Patient reports receiving the 1st dose of the Covid vaccine. Ebola Screen: Patient denies travel to an Ebola-affected area in the 21 days before illness onset. Initial Sepsis Screen: Does the patient meet any 2 criteria? No. Patient's initial sepsis screen is negative. Does the patient have a suspected source of infection? No. Patient's initial sepsis screen is negative. Risk Assessment: Do you want to hurt yourself or someone else? Patient reports no desire to harm self or others. Onset of symptoms was April 2024. 12:18 Method Of Arrival: Ambulatory [facility] 12:18 Acuity: FLORENTINO 3 nj1 Triage Assessment: 12:21 General: Appears in no apparent distress. uncomfortable, Behavior is calm, cooperative, nj1 appropriate for age. Pain: Complains of pain in back Pain currently is 7 out of 10 on a pain scale. Neuro: Level of Consciousness is awake, alert, obeys commands, Oriented to person, place, time, situation. Cardiovascular: Patient's skin is warm and dry. Respiratory: Airway is patent Respiratory effort is even, unlabored. Musculoskeletal: Reports pain in back. Historical: - Allergies: 12:17 No Known Allergies; nj1 - PMHx: 12:17 None; nj1 - PSHx: 12:17 Appendectomy; nj1 - Immunization history:: Client reports receiving the 1st dose of the Covid vaccine. - Infectious Disease History:: Denies. - Social history:: Smoking status: Reported history of juuling and/or vaping. Screenin:17 [facility] ED Fall Risk Assessment (Adult) History of falling in the last 3 months, kj2 including since admission No falls in past 3 months (0 pts) Confusion or Disorientation No (0 pts) Intoxicated or Sedated No (0 pts) Impaired Gait No (0 pts) Mobility Assist Device Used No (0 pt) Altered Elimination No (0 pt) Score/Fall Risk Level 0 - 2 = Low Risk. Abuse screen: Denies threats or abuse. Denies injuries from another. Nutritional screening: No deficits noted. Tuberculosis screening: No symptoms or risk factors identified. Assessment: 13:15 General: Appears in no apparent distress. uncomfortable, Behavior is calm, cooperative. kj2 Pain: Complains of pain in back and lumbar area. Neuro: Level of Consciousness is awake, alert, obeys commands, Oriented to person, place, time, situation. Cardiovascular: Patient's skin is warm and dry. Respiratory: Airway is patent Respiratory effort is even, unlabored. GI: No deficits noted. : No deficits noted. Vital Signs: 12:18 BP 127 / 76; Pulse 68; Resp 18; Temp 98.9; Pulse Ox 97% on R/A; Weight 74.84 kg; Height nj1 5 ft. 6 in. ; Pain 7/10; 13:17 BP 111 / 80; Pulse 57; Resp 18; Temp 98; Pulse Ox 100% on R/A; kj2 13:44 BP 119 / 79; Pulse 69; Resp 20; Temp 98; Pulse Ox 98% on R/A; kj2 12:18 Body Mass Index 26.63 (74.84 kg, 167.64 cm) nj1 12:18 Pain Scale: Adult nj1 ED Course: 12:11 Patient arrived in ED. mr 12:14 Irma Burch PA-C is PHCP. sb4 12:14 Jericho Estrada MD is Attending Physician. sb4 12:17 Arm band placed on left wrist. nj1 12:21 Triage completed. nj1 12:36 Lumbar Spine (3 Views) XRAY In Process Unspecified. EDMS 13:03 Tiffanie Araujo, DEVIN is Primary Nurse. kj2 13:18 Patient has correct armband on for positive identification. Bed in low position. kj2 Provided Education on: call light, fall precautions. 13:18 No provider procedures requiring assistance completed. kj2 13:40 Patient did not have IV access during this emergency room visit. kj2 Administered Medications: 13:15 Drug: Ketorolac IM 30 mg IM once Route: IM; Site: left deltoid; kj2 13:39 Follow up: Response: No adverse reaction; Pain is decreased kj2 13:15 Drug: Dexamethasone IM 10 mg IM once Route: IM; Site: right deltoid; kj2 13:39 Follow up: Response: No adverse reaction; Pain is decreased kj2 13:15 Drug: Cyclobenzaprine PO 10 mg PO once Route: PO; kj2 13:38 Follow up: Response: No adverse reaction; Pain is decreased kj2 Medication: 13:18 VIS not applicable for this client. kj2 Outcome: 13:35 Discharge ordered by . aisha 13:40 Discharged to home ambulatory, kj2 13:40 Condition: stable 13:40 Discharge instructions given to patient, family, Instructed on discharge instructions, follow up and referral plans. medication usage, Demonstrated understanding of instructions, follow-up care, medications, 13:51 Patient left the ED. kj2 Signatures: Dispatcher [employer] EDNV Sola Lemus, Onur Mohr Irma Sanchez, PAAlbertaC PAJr sb4 Luz Treviño RN RN nj1 Tiffanie Araujo RN RN kj2
[2024-05-31 14:57] VITALS: TEMP 98
[2024-05-31 14:59] VITALS: BP 119/79; O2SAT 98
== END 2024-05-31 13:51 | disposition home or self-care (01) ==
LOC: ER 12:07
DX: S39.012A Strain of muscle, fascia and tendon of lower back, initial encounter (principal)
CPT/HCPCS: 72100; 96372; 99284; J1100

== ENCOUNTER 2024-10-06 06:05 | Emergency (ER) | payer SELFPAY ==
[2024-10-06] MEDS ORDERED: ONDANSETRON 4 MG/2 ML VIAL ONE (06:40)
[2024-10-06] MEDS ORDERED: methocarbamoL 750 MG TAB ONE (06:40)
[2024-10-06] MEDS ORDERED: MORPHINE 4 MG/ML SYR ONE (06:41)
[2024-10-06] MEDS ORDERED: KETOROLAC 30 MG/ML INJ ONE (06:41)
[2024-10-06] MEDS ORDERED: NA CHLORIDE 0.9% 1,000 ML ONE (06:41)
[2024-10-06 06:50] LABS: Absolute Eosinophils 0.1 K/uL (0-0.5); Absolute Lymphocytes (CBC) 2.4 K/uL (0.7-4.9); Absolute Monocytes 0.8 K/uL (0.1-1.3); Absolute Neutrophil 6.5 K/uL (1.8-8.0); Basophils % 0.4 % (0-1.3); Eosinophils % 0.9 % (0-4.4); Hematocrit 41.5 % (39.6-49.0); Hemoglobin 14.2 g/dL (13.6-17.9); Lymphocytes % 24.6 % (15.3-44.8); MCH 30.4 pg (27.0-35.0); MCHC 34.2 g/dL (32.0-36.0); MCV 88.8 fL (80-100); MPV 7.6 fL (7.6-11.3); Monocytes % 7.8 % (3.3-12.3); Neutrophils % 66.3 % (41.7-73.7); Nucleated Red Blood Cells % 0.1 % (0-0); Platelets 337 thou/uL (152-406); RBC Red Blood Cell Count 4.68 M/uL (4.33-5.43); Red Cell Distribution Width 12.6 % (12.1-15.2)
[2024-10-06 07:05] LABS: ALT/SGPT 125 U/L (16-61); AST/SGOT 54 U/L (15-37); Albumin 3.7 g/dL (3.4-5.0); Albumin/Globulin Ratio 0.9 (1.1-1.8); Alkaline Phosphatase 129 U/L (45-117); Anion Gap 8.2 mEq/L (5.0-15.0); BUN Blood Urea Nitrogen 23 mg/dL (7-18); Bicarbonate 25 mEq/L (21-32); Bilirubin Total 0.6 mg/dL (0.2-1.0); Globulin 3.9 g/dL (2.3-3.5); Glomerular Filtration Rate 115 ml/min (=/>90); Glucose Level 104 mg/dL (74-106); Magnesium 2.2 mg/dL (1.6-2.4); NT PRO-BNP 26 pg/mL (<125); Potassium 4.2 mEq/L (3.5-5.1); Protein, Total 7.6 g/dL (6.4-8.2); Sodium Level 137 mEq/L (136-145)
[2024-10-06 07:06] LABS: Bilirubin Direct < 0.2 mg/dL (0-0.2); Bilirubin Indirect, Calculated 0.4 mg/dL (0.2-0.8); Troponin High Sensitivity < 3.0 pg/mL (<58.9)
--- NOTE | 2024-10-06 07:38 | RAD REPORT ---
EXAM: CT CHEST, ABDOMEN AND PELVIS WITH CONTRAST CLINICAL INDICATION: CHEST PAIN TECHNIQUE: CT chest, abdomen and pelvis was performed, following the administration of contrast, as p er department protocol. Axial, sagittal and coronal reconstructions were obtained. One or more of the following dose reduction techniques were used: Automated exposure control, adjustment of the mA a nd/or kV according to patient size, and/or iterative reconstruction. Unless otherwise specified, incidental findings do not require dedicated imaging follow-up. COMPARISON: 09/06/2024, 05/05/2023 FINDINGS: LUNGS: No evidence of airspace or interstitial process. No nodules. Small emphysematous bulla in the lung apices. PLEURA: No pleural effusion. No pneumothorax. MEDIASTINUM AND LYMPH NODES: No mediastinal mass or fluid collection. Normal size mediastinal, hilar, and axillary lymph nodes. OSSEOUS STRUCTURES AND CHEST WALL: Intact. LIVER: The liver demonstrates mild fatty infiltration. No focal lesion or biliary dilatation is seen. Grossly unremarkable gallbladder. PANCREAS: No mass, ductal dilation, or surya-pancreatic fluid. SPLEEN: Normal size. No focal lesion. ADRENALS: Normal; no mass. KIDNEYS: Normal size and contour. No hydronephrosis. URINARY BLADDER: Normal contour. GASTROINTESTINAL TRACT: No bowel obstruction, free air, significant free fluid or abscess. There is mild diverticulosis coli of the sigmoid colon without diverticulitis. APPENDIX: Appendix surgically absent. LYMPH NODES: No lymphadenopathy. MUSCULOSKELETAL: No acute or suspicious osseous abnormality. OTHER: IMPRESSION: No acute or significant abnormalities seen in the chest, abdomen or pelvis. Diffuse fatty liver.
[2024-10-06 08:28] LABS: Sqamous Epithelial <5 /HPF (None Seen); Urine Bacteria None Seen /HPF (<20); Urine Bilirubin NEGATIVE (Negative); Urine Blood Negative (Negative); Urine Clarity Clear (Clear); Urine Color Light-Yellow (Yellow); Urine Culture Reflex Order NOT NEEDED; Urine Glucose NEGATIVE (Negative); Urine Ketones NEGATIVE (Negative); Urine Micro Reflex YN NO BILL MICROSCOPIC; Urine Mucus Slight /HPF (None Seen); Urine Nitrite NEGATIVE (Negative); Urine Protein NEGATIVE (Negative); Urine RBC None Seen /HPF (None Seen); Urine Urobilinogen Normal (Normal); Urine WBC None Seen /HPF (<5); Urine pH 5.5 (5.0-7.0)
[2024-10-06 08:34] LABS: Specific Gravity > 1.030 (1.005-1.030)
--- NOTE | 2024-10-06 08:42 | EDPHYS ---
Physician Documentation [facility] Name: Gal Chang Age: 24 yrs Sex: Male : 2000 Arrival Date: 10/06/2024 Time: 06:05 Bed 7 Private MD: ED Physician Ashish Maloney HPI: 10/06 06:21 This 24 yrs old Male presents to ER via Unassigned with complaints of Back sp4 Pain, Chest Tightness, Neck pain. 06:51 24-year-old male with past medical history of seizure disorder presents with acute sp4 onset chest and back pain starting 2 weeks ago worsening today. Patient reports midsternal chest pain also lower back pain described as sharp and stabbing. Pain is midsternal and also to the left over the sternum. Patient denied any prior similar pain. Patient denied use of tobacco, but reports vaping. Historical: - Allergies: 06:23 No Known Allergies; bm8 - Home Meds: 06:23 None [Active]; bm8 - PMHx: 06:23 seizures; bm8 - PSHx: 06:23 Appendectomy; bm8 - Immunization history:: Adult Immunizations up to date. - Infectious Disease History:: Denies. - Social history:: Smoking status: . - Family history:: not pertinent. ROS: 06:51 Constitutional: Negative for fever, chills, and weight loss, positive chest pain, sp4 positive back pain 06:51 All other systems are negative, Exam: 06:51 Constitutional: This is a well developed, well nourished patient who is awake, alert, sp4 and in no acute distress. Head/Face: Normocephalic, atraumatic. Eyes: Pupils equal round and reactive to light, extra-ocular motions intact. Lids and lashes normal. Conjunctiva and sclera are not injected. Cornea within normal limits. Periorbital areas with no swelling, redness, or edema. ENT: Nares patent. No nasal discharge, no septal abnormalities noted. Tympanic membranes are normal and external auditory canals are clear. Oropharynx with no redness, swelling, or masses, exudates, or evidence of obstruction, uvula midline. Mucous membranes moist. Neck: Trachea midline, no thyromegaly or masses palpated, and no cervical lymphadenopathy. Supple, full range of motion without nuchal rigidity, or vertebral point tenderness. Chest/axilla: Normal chest wall appearance and motion. Nontender with no deformity. No lesions are appreciated. Cardiovascular: Regular rate and rhythm with a normal S1 and S2. No gallops, murmurs, or rubs. Normal PMI, no JVD. No pulse deficits. Respiratory: Lungs have equal breath sounds bilaterally, clear to auscultation and percussion. No rales, rhonchi or wheezes noted. No increased work of breathing, no retractions or nasal flaring. Abdomen/GI: Soft, with normal bowel sounds. No distension or tympany. No guarding or rebound. No evidence of tenderness throughout. Back: No spinal tenderness. No costovertebral tenderness. Skin: Warm, dry with normal turgor. Normal color with no rashes, no lesions, and no evidence of cellulitis. MS/ Extremity: Pulses equal, no cyanosis. Neurovascular intact. Full, normal range of motion. Neuro: Awake and alert, GCS 15, oriented to person, place, time, and situation. Cranial nerves II-XII grossly intact. Motor strength 5/5 in all extremities. Sensory grossly intact. Psych: Awake, alert, with orientation to person, place and time. Behavior, mood, and affect are within normal limits 06:51 ECG was reviewed by the Attending Physician. EKG 0 619 normal sinus rhythm rate 61 normal EKG Vital Signs: 06:20 BP 127 / 92; Pulse 62; Resp 16; Temp 98.7; Pulse Ox 99% ; Weight 77.11 kg; Height 5 ft. bm8 6 in. ; Pain 8/10; 06:49 BP 109 / 80; Pulse 62; Resp 12; Temp 98.7; Pulse Ox 99% ; Pain 7/10; bm8 08:00 BP 107 / 69; Pulse 69; Resp 16 S; Pulse Ox 99% on R/A; kc6 08:47 BP 99 / 65; Pulse 50; Resp 15 S; Pulse Ox 99% on R/A; kc6 06:20 Body Mass Index 27.44 (77.11 kg, 167.64 cm) bm8 06:20 Pain Scale: Adult bm8 06:49 Pain Scale: Adult bm8 Ana Paula Coma Score: 06:49 Eye Response: spontaneous(4). Motor Response: obeys commands(6). Verbal Response: bm8 oriented(5). Total: 15. 06:51 Eye Response: spontaneous(4). Motor Response: obeys commands(6). Verbal Response: sp4 oriented(5). Total: 15. MDM: 06:24 Medical Screening Exam initiated sp4 06:53 Differential diagnosis: arthritis, Cholelithiasis Fatigue Fracture. Data reviewed: sp4 vital signs, nurses notes, old medical records, lab test result(s), EKG, radiologic studies, CT scan. Consideration of Admission/Observation Escalation of care including admission/observation considered. Transition of care: After a detail discussion of the patient's case, care is transferred to [facility]. 10/06 06:24 Order name: Basic Metabolic Panel; Complete Time: 07:53 4 10/06 06:24 Order name: CBC with Diff; Complete Time: 07:02 [facility] 10/06 06:24 Order name: LFT's; Complete Time: 07:53 [facility] 10/06 06:24 Order name: Magnesium; Complete Time: 07:53 [facility] 10/06 06:24 Order name: NT PRO-BNP; Complete Time: 07:53 4 10/06 06:24 Order name: Troponin HS; Complete Time: 07:53 4 10/06 06:33 Order name: Lipase; Complete Time: 07:02 [facility] 10/06 06:50 Order name: Urine Drug Screen 10/06 06:50 Order name: Urinalysis W/Microscopic 4 10/06 06:32 Order name: CT Chest, Abdomen, Pelvis - W/Contrast; Complete Time: 07:53 [facility] 10/06 06:24 Order name: Cardiac monitoring; Complete Time: 06:25 4 10/06 06:24 Order name: EKG - Nurse/Tech; Complete Time: 06:25 4 10/06 06:24 Order name: IV Saline Lock; Complete Time: 06:25 4 10/06 06:24 Order name: Labs collected and sent; Complete Time: 06:25 4 10/06 06:24 Order name: O2 Per Protocol; Complete Time: 06:25 [facility] 10/06 06:24 Order name: O2 Sat Monitoring; Complete Time: 06:25 4 EC:19 Rate is 61 beats/min. Rhythm is regular, Normal Sinus Rhythm. QRS Armour is Normal. VA sp4 interval is normal. QRS interval is normal. QT interval is normal. No Q waves. T waves are Normal. No ST changes noted. Clinical impression: Normal ECG. Interpreted by me. Reviewed by me. Administered Medications: 06:46 Drug: Methocarbamol PO 1500 mg PO once Route: PO; bm8 07:00 Follow up: Response: No adverse reaction kc6 06:47 Drug: morphine IVP or IV 4 mg IVP once over 4 mins Route: IVP; Infused Over: 4 mins; bm8 Site: right antecubital; 07:00 Follow up: Response: No adverse reaction; Pain is decreased; RASS: Alert and Calm (0) kc6 06:47 Drug: Ketorolac IVP 30 mg IVP once Route: IVP; Site: right antecubital; bm8 07:00 Follow up: Response: No adverse reaction; Pain is decreased kc6 06:47 Drug: NS 0.9% IV 1000 ml IV at 1 bolus Per protocol; to be given as a bolus over 60 bm8 minutes Route: IV; Rate: 1 bolus; Site: right antecubital; 08:01 Follow up: Response: No adverse reaction; IV Status: Completed infusion; IV Intake: kc6 1000ml 06:47 Drug: Ondansetron IVP 4 mg IVP once; over 2 minutes Route: IVP; Site: right antecubital;bm8 07:00 Follow up: Response: No adverse reaction kc6 Disposition Summary: 10/06/24 08:42 Discharge Ordered Notes: Location: Home ms3 Condition: Stable ms3 Diagnosis - Low back pain ms3 - Chest pain, unspecified ms3 - Abdominal pain, unspecified ms3 - Transaminitis ms3 Followup: ms3 - With: Roque Guaman DO - When: 2 - 3 days - Reason: Recheck today's complaints Discharge Instructions: - Discharge Summary Sheet ms3 - Abdominal Pain, Adult ms3 - Acute Back Pain, Adult ms3 - Nonspecific Chest Pain, Adult ms3 Forms: - Medication Reconciliation Form ms3 - Antibiotic Education ms3 - Prescription Opioid Use ms3 - Patient Portal Instructions ms3 - Leadership Thank You Letter ms3 - Work release form kc6 Signatures: Dispatcher [employer] EDAshish Copeland DO DO ms3 Brett Hamilton MD MD sp4 Flex Aponte, RN RN bm8 Johana Pollard RN kc6 Corrections: (The following items were deleted from the chart) 06:24 06:24 BASIC METABOLIC PANEL+C.LAB.BRZ ordered. EDMS EDMS 06: 06:24 CBC+H.LAB.BRZ ordered. EDMS EDMS 06:24 06:24 HEPATIC FUNCTION+C.LAB.BRZ ordered. EDMS EDMS : 06:24 MAGNESIUM+C.LAB.BRZ ordered. EDMS EDMS 06:25 06:24 PROBNP+C.LAB.BRZ ordered. EDMS EDMS 06: 06:24 Troponin High Sensitivity+C.LAB.BRZ ordered. EDMS EDMS 06: 06:25 Chest Single View+RAD.RAD.BRZ ordered. EDMS EDMS
--- NOTE | 2024-10-06 08:42 | ER ---
Nurse's Notes [facility] Name: Gal Chang Age: 24 yrs Sex: Male : 2000 Arrival Date: 10/06/2024 Time: 06:05 Bed 7 Private MD: Diagnosis: Low back pain;Chest pain, unspecified;Abdominal pain, unspecified;Transaminitis Presentation: 10/06 06:20 Chief complaint: Patient states: i have bad back pain that started last night and got bm8 worse this morning after sleeping, chest pain for two weeks that is coming and going but this morning stayed. Coronavirus screen: Vaccine status: Patient reports receiving the 2nd dose of the covid vaccine. At this time, the client does not indicate any symptoms associated with coronavirus-19. Ebola Screen: Patient negative for fever greater than or equal to 101.5 degrees Fahrenheit, and additional compatible Ebola Virus Disease symptoms Patient denies exposure to infectious person. Patient denies travel to an Ebola-affected area in the 21 days before illness onset. No symptoms or risks identified at this time. Initial Sepsis Screen: Does the patient meet any 2 criteria? No. Patient's initial sepsis screen is negative. Does the patient have a suspected source of infection? No. Patient's initial sepsis screen is negative. Risk Assessment: Do you want to hurt yourself or someone else? Patient reports no desire to harm self or others. Onset of symptoms was September 22, 2024. 06:20 Method Of Arrival: Ambulatory bm8 06:20 Acuity: FLORENTINO 3 bm8 Triage Assessment: 06:23 General: Appears in no apparent distress. comfortable, Behavior is calm, cooperative, bm8 appropriate for age. Pain: Complains of pain in back and chest Pain currently is 8 out of 10 on a pain scale. Quality of pain is described as sharp. EENT: No deficits noted. No signs and/or symptoms were reported regarding the EENT system. Neuro: No deficits noted. Level of Consciousness is awake, alert, obeys commands, Oriented to person, place, time, situation, Appropriate for age. Cardiovascular: Reports chest pain, Heart tones S1 S2 present Capillary refill < 3 seconds in bilateral fingers. Respiratory: Airway is patent Trachea midline Respiratory effort is even, unlabored, Respiratory pattern is regular, symmetrical, Breath sounds are clear bilaterally. GI: No signs and/or symptoms were reported involving the gastrointestinal system. : No signs and/or symptoms were reported regarding the genitourinary system. Derm: No signs and/or symptoms reported regarding the dermatologic system. Musculoskeletal: Circulation, motion, and sensation intact. Capillary refill < 3 seconds, in bilateral fingers. Reports pain in back since last night. Pain is 8 out of 10 on a pain scale. Historical: - Allergies: 06:23 No Known Allergies; bm8 - Home Meds: :23 None [Active]; bm8 - PMHx: :23 seizures; bm8 - PSHx: 06:23 Appendectomy; bm8 - Immunization history:: Adult Immunizations up to date. - Infectious Disease History:: Denies. - Social history:: Smoking status: . - Family history:: not pertinent. Screenin:47 [facility] ED Fall Risk Assessment (Adult) History of falling in the last 3 months, bm8 including since admission No falls in past 3 months (0 pts) Confusion or Disorientation No (0 pts) Intoxicated or Sedated No (0 pts) Impaired Gait Yes (1 pt) Mobility Assist Device Used No (0 pt) Altered Elimination No (0 pt) Score/Fall Risk Level 0 - 2 = Low Risk Oriented to surroundings, Maintained a safe environment, Educated pt \T\ family on fall prevention, incl call for assistance when getting out of bed, Assessed \T\ reinforced patient's understanding of fall precautions, Hourly rounding (assess needs \T\ fall precautionary measures) done, Used ambulatory aids as needed (educated on \T\ assisted with), Used gait belt as appropriate. Abuse screen: Denies threats or abuse. Nutritional screening: No deficits noted. Tuberculosis screening: No symptoms or risk factors identified. Assessment: 07:15 General: Appears in no apparent distress. uncomfortable, well groomed, well developed, kc6 Behavior is calm, cooperative, appropriate for age. Pain: Complains of pain in chest and back. Neuro: Level of Consciousness is awake, alert, obeys commands, Oriented to person, place, time, situation, Appropriate for age. Cardiovascular: Reports chest pain, Heart tones S1 S2 present Capillary refill < 3 seconds Rhythm is regular. Respiratory: Airway is patent Trachea midline Respiratory effort is even, unlabored, Respiratory pattern is regular, symmetrical. GI: No signs and/or symptoms were reported involving the gastrointestinal system. : No signs and/or symptoms were reported regarding the genitourinary system. EENT: No signs and/or symptoms were reported regarding the EENT system. Derm: No signs and/or symptoms reported regarding the dermatologic system. Skin is intact, is healthy with good turgor, Skin is pink, warm \T\ dry. Musculoskeletal: Circulation, motion, and sensation intact. Capillary refill < 3 seconds, Range of motion: intact in all extremities. 08:47 Reassessment: Patient appears in no apparent distress at this time. No changes from kc6 previously documented assessment. Patient and/or family updated on plan of care and expected duration. Pain level reassessed. Patient is alert, oriented x 3, equal unlabored respirations, skin warm/dry/pink. Vital Signs: 06:20 BP 127 / 92; Pulse 62; Resp 16; Temp 98.7; Pulse Ox 99% ; Weight 77.11 kg; Height 5 ft. bm8 6 in. ; Pain 8/10; 06:49 BP 109 / 80; Pulse 62; Resp 12; Temp 98.7; Pulse Ox 99% ; Pain 7/10; bm8 08:00 BP 107 / 69; Pulse 69; Resp 16 S; Pulse Ox 99% on R/A; kc6 08:47 BP 99 / 65; Pulse 50; Resp 15 S; Pulse Ox 99% on R/A; kc6 06:20 Body Mass Index 27.44 (77.11 kg, 167.64 cm) bm8 06:20 Pain Scale: Adult bm8 06:49 Pain Scale: Adult bm8 Ana Paula Coma Score: 06:49 Eye Response: spontaneous(4). Motor Response: obeys commands(6). Verbal Response: bm8 oriented(5). Total: 15. 06:51 Eye Response: spontaneous(4). Motor Response: obeys commands(6). Verbal Response: sp4 oriented(5). Total: 15. ED Course: 06:10 Patient arrived in ED. gm2 06:20 Flex Aponte, RN is Primary Nurse. bm8 06:21 Brett Hamilton MD is Attending Physician. sp4 06:23 Triage completed. bm8 06:23 Arm band placed on right wrist. bm8 06:35 Radiology exam delayed due to IV insertion attempt and/or patient not having nj appropriate IV at this time. 06:47 Patient has correct armband on for positive identification. Placed in gown. Bed in low bm8 position. Call light in reach. Side rails up X 1. Adult w/ patient. Client placed on continuous cardiac and pulse oximetry monitoring. NIBP monitoring applied. property assessment monitor on. Pulse ox on. NIBP on. Door closed. Noise minimized. Warm blanket given. Pillow given. Verbal reassurance given. Head of bed elevated. 06:47 No provider procedures requiring assistance completed. Initial lab(s) drawn, by kelley steele sent to lab. EKG done, by ED staff, reviewed by Brett Hamilton MD. Inserted saline lock: 20 gauge in right antecubital area, using aseptic technique. Blood collected. Flushed with 10 mL NS. Patient maintains SpO2 saturation greater than 95% on room air. 07:00 Report received from Nayely Pendleton RN \Evin\ DEVIN Mccord. kc6 07:00 property assessment monitor on. Pulse ox on. NIBP on. Door closed. Noise minimized. Lights dimmed. kc6 Pillow given. 07:10 CT Chest, Abdomen, Pelvis - W/Contrast In Process Unspecified. EDMS 07:52 Attending Physician role handed off by Brett Hamilton MD ms3 07:52 Ashish Maloney DO is Attending Physician. ms3 08:15 Urinalysis W/Microscopic Sent. ss 08:15 Urine Drug Screen Sent. ss 08:39 Roque Guaman DO is Referral Physician. ms3 08:54 IV discontinued, intact, bleeding controlled, No redness/swelling at site. Pressure ko1 dressing applied. Administered Medications: 06:46 Drug: Methocarbamol PO 1500 mg PO once Route: PO; bm8 07:00 Follow up: Response: No adverse reaction kc6 06:47 Drug: morphine IVP or IV 4 mg IVP once over 4 mins Route: IVP; Infused Over: 4 mins; bm8 Site: right antecubital; 07:00 Follow up: Response: No adverse reaction; Pain is decreased; RASS: Alert and Calm (0) kc6 06:47 Drug: Ketorolac IVP 30 mg IVP once Route: IVP; Site: right antecubital; bm8 07:00 Follow up: Response: No adverse reaction; Pain is decreased kc6 06:47 Drug: NS 0.9% IV 1000 ml IV at 1 bolus Per protocol; to be given as a bolus over 60 bm8 minutes Route: IV; Rate: 1 bolus; Site: right antecubital; 08:01 Follow up: Response: No adverse reaction; IV Status: Completed infusion; IV Intake: kc6 1000ml 06:47 Drug: Ondansetron IVP 4 mg IVP once; over 2 minutes Route: IVP; Site: right antecubital;bm8 07:00 Follow up: Response: No adverse reaction kc6 Medication: 06:47 VIS not applicable for this client. bm8 Intake: 08:01 IV: 1000ml; Total: 1000ml. kc6 Outcome: 08:42 Discharge ordered by . ms3 08:54 Discharged to home ambulatory, with significant other, ko1 08:54 Condition: good 08:54 Discharge instructions given to patient, Instructed on discharge instructions, follow up and referral plans. no drinking with medication, no driving heavy equipment, Demonstrated understanding of instructions, follow-up care, 08:54 Patient left the ED. ko1 Signatures: Dispatcher [employer] EDMS Danyell Mann, RN RN Kevyn Pastrana Marcus, DO ms3 Johana Pollard RN RN kc6 Symone Chu, DEVIN RN ko1 Brett Hamilton MD MD sp4 Noemy Cunningham gm2 Flex Aponte, RN RN bm8
[2024-10-06 08:58] VITALS: TEMP 98.7; O2SAT 99
[2024-10-06 09:04] VITALS: BP 99/65
[2024-10-06 09:21] LABS: Barbiturates NEGATIVE (NEGATIVE); Benzodiazepines NEGATIVE (NEGATIVE); Cocaine NEGATIVE (NEGATIVE); METHAMPHETAM NEGATIVE (NEGATIVE); Methadone NEGATIVE (NEGATIVE); Opiates POSITIVE (NEGATIVE); Phencyclidine NEGATIVE (NEGATIVE); THC Cannibis NEGATIVE (NEGATIVE)
--- NOTE | 2024-10-08 11:33 | EKG ---
Test Date: 2024-10-06 Test Time: 06:19:41 [employer] Officer: JESSICA MEASUREMENT RESULTS: Intervals: Rate: 61 UT: 146 QRSD: 80 QT: 368 QTc: 370 [place]: P: 27 UT: 146 QRS: 35 T: 35 INTERPRETIVE STATEMENTS: Normal sinus rhythm Normal ECG Compared to ECG 04/28/2014 18:12:01 No significant changes Electronically Signed On 10-08-24 11:31:35 SCREW MACHINE TENDER by Turner Wills
== END 2024-10-06 08:54 | disposition home or self-care (01) ==
LOC: ER 06:05
DX: R07.89 Other chest pain (principal); M54.50 Low back pain, unspecified; R74.01 Elevation of levels of liver transaminase levels; R10.9 Unspecified abdominal pain
CPT/HCPCS: 36415; 71260; 74177; 80048; 80076; 80307; 81001; 83690; 83735; 83880; 84484; 85025; 93005; 96361; 96374; 96375; 99285; J2405; J7030; Q9967